=== PATIENT | female | born 1960 | race American Indian/Alaskan Native ===

== ENCOUNTER 2019-02-03 10:06 | Day surgery (SDC) | payer OTHER ==
[~2019-02-03 10:06] MED LIST: Lactated Ringers 1,000 ML IV SCH
--- NOTE | 2019-02-03 11:17 | PCM.PREANE ---
Preanesthetic Assessment - Anesthesia/Transfusion/Family Hx Anesthesia History: Prior Anesthesia Without Reaction Family History of Anesthesia Reaction: No Transfusion History: No Prior Transfusion(s) - Review of Systems General: No Symptoms Pulmonary: No Symptoms Cardiovascular: No Symptoms Gastrointestinal: No Symptoms Neurological: No Symptoms Other: Reports: None - Physical Assessment NPO Status Date: 02/02/19 Height: 5 ft 2 in Weight: 73.936 kg Mental Status: Alert & Oriented x3 Airway Class: Mallampati = 2 Dentition: Reports: Normal Dentition ROM/Head Extension: Full Lungs: Clear to Auscultation, Normal Respiratory Effort Cardiovascular: Regular Rate, Regular Rhythm - Allergies Allergies/Adverse Reactions: Allergies Allergy/AdvReac Type Severity Reaction Status Date / Time wool Allergy Rash Verified 01/29/19 08:58 - Blood Blood Available: No - Anesthesia Plan Pre-Op Medication Ordered: None - Acknowledgements Anesthesia Type Planned: General Anesthesia Pt an Appropriate Candidate for the Planned Anesthesia: Yes Alternatives and Risks of Anesthesia Discussed w Pt/Guardian: Yes Pt/Guardian Understands and Agrees with Anesthesia Plan: Yes Additional Comments: PMH: smoker, chronic pain BLE, hx of hep C, treated PLAN: tiva PreAnesthesia Questionnaire HEENT History: Reports: Other (See Below) Other HEENT History: reading glasses Cardiovascular History: Reports: None Respiratory History: Reports: COPD Gastrointestinal History: Reports: GERD, Hemorrhoids, Hepatitis Other Gastrointestinal History: hepatitis C in the past, states has been treated , was told she had cirrhosis of the liver in 2006 but has since been told her liver is fine Genitourinary History: Reports: None HOUSING RELOCATION History: Reports: Musculoskeletal History: Reports: Arthritis, Fracture Other Musculoskeletal History: hx fx wrist & ankle Neurological History: Reports: Neuropathy, Peripheral Psychiatric History: Reports: Anxiety, Depression, Other (See Below) Other Psychiatric History: depression and anxiety recently due to loss of son Endocrine/Metabolic History: Reports: None Hematologic History: Reports: None Immunologic History: Reports: None Oncologic (Cancer) History: Reports: None Dermatologic History: Reports: None - Past Surgical History Head Surgeries/Procedures: Reports: None HEENT Surgical History: Reports: None Cardiovascular Surgical History: Reports: None Respiratory Surgical History: Reports: None GI Surgical History: Reports: None Female Surgical History: Reports: Section, Tubal Ligation Endocrine Surgical History: Reports: None Neurological Surgical History: Reports: None Musculoskeletal Surgical History: Reports: None Oncologic Surgical History: Reports: None Dermatological Surgical History: Reports: None - SUBSTANCE USE Smoking Status *Q: Current Every Day Smoker Tobacco Use Within Last Twelve Months: Cigarettes Recreational Drug Use History: No - HOME MEDS Home Medications: Home Meds Carisoprodol [Soma] 350 mg PO TID PRN 01/29/19 [History] Furosemide 20 mg PO DAILY 01/29/19 [History] Gabapentin [Neurontin] 2 tab PO TID 01/29/19 [History] Hydrocortisone Acetate [Anusol-Hc] 1 supp RECTAL ASDIRECTED PRN 01/29/19 [ History] Hydrocortisone [Hydrocortisone 2.5% Crm] 1 applic TOP ASDIRECTED 01/29/19 [ History] Ranitidine HCl [Ranitidine] 1 tab PO BID 01/29/19 [History] Vitamin B Complex with C [Super B With Vitamin C] 1 tab PO DAILY 01/29/19 [ History] traMADol HCl [Tramadol HCl] 1 tab PO QID PRN 01/29/19 [History] - CURRENT (IN HOUSE) MEDS Current Meds: Current Medications Lactated Ringer's (Ringers, Lactated) 1,000 mls @ 125 mls/hr IV ASDIRECTED REGINA
[2019-02-03] MEDS ORDERED: fentaNYL 100 MCG/2 ML SDV ONE (11:45)
[2019-02-03] MEDS ORDERED: Propofol 200 MG/20 ML SDV ONE ×2 (11:45→12:16)
[2019-02-03] MEDS ORDERED: Midazolam 1 MG/ML 2 ML SDV ONE (11:45)
--- NOTE | 2019-02-03 12:37 | PCM.OPNOTE ---
- General Post-Op/Procedure Note Date of Surgery/Procedure: 02/03/19 Operative Procedure(s): Colonoscopy Pre Op Diagnosis: Rectal bleeding. Rectal mass. Family history of colon cancer Post-Op Diagnosis: Perianal mass Anesthesia Technique: MAC ( ASA III) Primary Surgeon: Bernardo Pedro Condition: Good Free Text/Narrative:: DICTATION [id number] CPT CODE [id number]
[2019-02-03] MEDS ORDERED: Lactated Ringers 1,000 ML IV SCH (12:45)
--- NOTE | 2019-02-03 13:01 | PCM.POSTAN ---
POST ANESTHESIA ASSESSMENT - MENTAL STATUS Mental Status: Alert, Oriented - RESPIRATORY Respiratory Status: Respiratory Rate WNL, Airway Patent, O2 Saturation Stable - CARDIOVASCULAR CV Status: Pulse Rate WNL, Blood Pressure Stable - GASTROINTESTINAL GI Status: No Symptoms - POST OP HYDRATION Hydration Status: Adequate & Stable
--- NOTE | 2019-02-03 13:02 | PCM48HPAN ---
Post Anesthesia Note - EVALUATION WITHIN 48HRS OF ANESTHETIC Vital Signs in Normal Range: Yes Patient Participated in Evaluation: Yes Respiratory Function Stable: Yes Airway Patent: Yes Cardiovascular Function Stable: Yes Hydration Status Stable: Yes Pain Control Satisfactory: Yes Nausea and Vomiting Control Satisfactory: Yes Mental Status Recovered: Yes Resp Rate: 12
--- NOTE | 2019-02-03 14:31 | OR ---
SURGEON: Bernardo Pedro M.D. DATE OF PROCEDURE: 02/03/2019 OPERATION PERFORMED: Colonoscopy. PRIMARY SURGEON: Bernardo Pedro M.D. ANESTHESIA: MAC. ASA CLASSIFICATION: III. PREOPERATIVE DIAGNOSIS: Rectal bleeding with rectal mass. POSTOPERATIVE DIAGNOSES: 1. No evidence of intracolonic neoplasia. 2. Rectal mass. DESCRIPTION OF PROCEDURE: The patient was taken to the endoscopy room and positioned on the endoscopy table in the left lateral decubitus position. Time-out was called for appropriate identification of the patient and procedure. Monitored anesthesia care was provided. The colonoscope was inserted into the rectum and advanced with minimal difficulty to the cecum where the colonoscope was retroflexed to visualize the ascending colon from below. The colonoscope was then straightened and slowly withdrawn. The cecum, ascending colon, hepatic flexure, transverse colon, splenic flexure, descending colon, sigmoid colon, and rectum were very well visualized. No tumors, polyps, diverticula, or angiodysplastic changes were noted. The colonoscope had been retroflexed in the cecum to visualize the ascending colon from below prior to withdrawal. Once the colonoscope was withdrawn to the rectum, it was retroflexed to visualize the anal orifice from above. No obvious intrarectal masses noted. There is, however, a perianal mass that is palpable that does not protrude into the rectum. The colonoscope was then straightened, the rectum aspirated, and the colonoscope removed. The patient will require exam under anesthesia and biopsy of this rectal mass to rule out a malignant neoplasm. The patient tolerated the procedure well and was taken to recovery room in stable condition. [place] / DIMITRIS /[id number]
== END 2019-02-03 13:20 | disposition home or self-care (01) ==
LOC: MW.SDS 10:06
PROVIDERS: ATTEND Surgery
DX: K92.1 Melena (principal); K62.89 Other specified diseases of anus and rectum; K64.9 Unspecified hemorrhoids; J44.9 Chronic obstructive pulmonary disease, unspecified; F17.210 Nicotine dependence, cigarettes, uncomplicated; Z91.048 Other nonmedicinal substance allergy status; Z79.899 Other long term (current) drug therapy; Z86.59 Personal history of other mental and behavioral disorders; Z80.0 Family history of malignant neoplasm of digestive organs
CPT/HCPCS: 00811; J2001; J2250; J2704; J3010; J7120

== ENCOUNTER 2019-03-01 07:07 | Day surgery (SDC) | payer OTHER ==
[~2019-03-01 07:07] MED LIST changes: +Lidocaine 2% 5 ML SDV ONE; +Midazolam 1 MG/ML 2 ML SDV ONE; +Ondansetron 4 MG/2 ML SDV ONE; +Propofol 200 MG/20 ML SDV ONE; +Sodium Chloride 0.9% 10 ML SDV IV PRN; +Sodium Chloride 0.9% 10 ML Syringe FLUSH PRN; +Sodium Chloride 0.9% 2.5 ML Syringe FLUSH PRN; +fentaNYL 250 MCG/5 ML SDV ONE
--- NOTE | 2019-03-01 08:06 | PCM.PREANE ---
Preanesthetic Assessment - Anesthesia/Transfusion/Family Hx Anesthesia History: Prior Anesthesia Without Reaction Family History of Anesthesia Reaction: No Transfusion History: No Prior Transfusion(s) - Review of Systems General: No Symptoms - Physical Assessment Height: 5 ft 2 in Weight: 73.936 kg ASA Class: 2 Mental Status: Alert & Oriented x3 Airway Class: Mallampati = 2 Dentition: Reports: Normal Dentition ROM/Head Extension: Full Lungs: Clear to Auscultation, Normal Respiratory Effort Cardiovascular: Regular Rate, Regular Rhythm - Allergies Allergies/Adverse Reactions: Allergies Allergy/AdvReac Type Severity Reaction Status Date / Time wool Allergy Rash Verified 02/23/19 11:12 - Blood Blood Available: No - Anesthesia Plan Pre-Op Medication Ordered: None - Acknowledgements Anesthesia Type Planned: General Anesthesia Pt an Appropriate Candidate for the Planned Anesthesia: Yes Alternatives and Risks of Anesthesia Discussed w Pt/Guardian: Yes Pt/Guardian Understands and Agrees with Anesthesia Plan: Yes Additional Comments: anes prob list: copd, RA, smoker, reomte hx of AUD, plan: ga/lma PreAnesthesia Questionnaire HEENT History: Reports: Other (See Below) Other HEENT History: hx of fx nose Cardiovascular History: Reports: None Respiratory History: Reports: COPD Gastrointestinal History: Reports: GERD, Hepatitis Other Gastrointestinal History: hx of Hepatitis C- has taken medication x2 to cure it Genitourinary History: Reports: None [employer] History: Reports: Musculoskeletal History: Reports: Arthritis, Back Pain, Chronic, Fracture Other Musculoskeletal History: hx of multiple finger fx and rib, right wrist Neurological History: Reports: Concussion Psychiatric History: Reports: PTSD Other Psychiatric History: depression and anxiety recently due to loss of son Endocrine/Metabolic History: Reports: None Hematologic History: Reports: None Immunologic History: Reports: None Oncologic (Cancer) History: Reports: None Dermatologic History: Reports: None - Past Surgical History GI Surgical History: Reports: Colonoscopy Female Surgical History: Reports: Section, Tubal Ligation - SUBSTANCE USE Smoking Status *Q: Current Every Day Smoker Tobacco Use Within Last Twelve Months: Cigarettes Recreational Drug Use History: Yes - HOME MEDS Home Medications: Home Meds Carisoprodol [Soma] 350 mg PO TID PRN 01/29/19 [History] Furosemide 20 mg PO DAILY 01/29/19 [History] Gabapentin [Neurontin] 600 mg PO TID 01/29/19 [History] Hydrocortisone Acetate [Anusol-Hc] 1 supp RECTAL ASDIRECTED PRN 01/29/19 [ History] Hydrocortisone [Hydrocortisone 2.5% Crm] 1 applic TOP ASDIRECTED 01/29/19 [ History] Ranitidine HCl [Ranitidine] 150 mg PO BID 01/29/19 [History] Vitamin B Complex with C [Super B With Vitamin C] 1 tab PO DAILY 01/29/19 [ History] traMADol HCl [Tramadol HCl] 50 mg PO QID PRN 01/29/19 [History] Albuterol [Ventolin HFA] 1 puff INH ASDIRECTED PRN 02/23/19 [History] - CURRENT (IN HOUSE) MEDS Current Meds: Current Medications Lactated Ringer's (Ringers, Lactated) 1,000 mls @ 125 mls/hr IV ASDIRECTED REGINA Sodium Chloride (Saline Flush) 10 ml FLUSH ASDIRECTED PRN PRN Reason: Keep Vein Open Sodium Chloride (Saline Flush) 2.5 ml FLUSH ASDIRECTED PRN PRN Reason: Keep Vein Open Sodium Chloride (Normal Saline) 10 ml IV ASDIRECTED PRN PRN Reason: IV Use Discontinued Medications Fentanyl (Sublimaze) Confirm Administered Dose 250 mcg .ROUTE .STK-MED ONE Stop: 03/01/19 07:03 Lidocaine (Xylocaine-Mpf 2%) Confirm Administered Dose 5 ml .ROUTE .STK-MED ONE Stop: 03/01/19 07:02 Midazolam HCl (Versed 1 Mg/Ml) Confirm Administered Dose 2 mg .ROUTE .STK-MED ONE Stop: 03/01/19 07:03 Ondansetron HCl (Zofran) Confirm Administered Dose 4 mg .ROUTE .STK-MED ONE Stop: 03/01/19 07:02 Propofol (Diprivan 20 Ml) Confirm Administered Dose 200 mg .ROUTE .STK-MED ONE Stop: 03/01/19 07:03
[2019-03-01] MEDS ORDERED: ePHEDrine 50 MG/ML SDV ONE (09:03)
[2019-03-01] MEDS ORDERED: Sodium Chloride 0.9% 20 ML ONE (09:03)
[2019-03-01] MEDS ORDERED: Glycopyrrolate 0.2 MG/ML SDV ONE (09:14)
[2019-03-01] MEDS ORDERED: Phenylephrine/Normal Saline 100 MCG/ML 10 ML Syringe ONE (09:14)
[2019-03-01] MEDS ORDERED: fentaNYL 100 MCG/2 ML SDV IVPUSH PRN (09:44)
[2019-03-01] MEDS ORDERED: Naloxone 0.4 MG/ML Syringe IVPUSH PRN (09:44)
[2019-03-01] MEDS ORDERED: 50% Dextrose in Water 50 ML Syringe IVPUSH PRN (09:44)
[2019-03-01] MEDS ORDERED: Albuterol 0.083% 2.5 MG/3 ML Neb Soln NEB PRN (09:44)
[2019-03-01] MEDS ORDERED: EPINEPHrine 1:10,000 1 MG/10 ML Syringe IVPUSH PRN (09:44)
[2019-03-01] MEDS ORDERED: Atropine 0.1 MG/ML 10 ML Syringe IVPUSH PRN ×2 (09:44)
--- NOTE | 2019-03-01 09:49 | PCM.OPNOTE ---
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
[2019-03-01] MEDS ORDERED: Lactated Ringers 1,000 ML IV SCH (10:00)
--- NOTE | 2019-03-01 11:10 | PCM48HPAN ---
Post Anesthesia Note - EVALUATION WITHIN 48HRS OF ANESTHETIC Vital Signs in Normal Range: Yes Patient Participated in Evaluation: Yes Respiratory Function Stable: Yes Airway Patent: Yes Cardiovascular Function Stable: Yes Hydration Status Stable: Yes Pain Control Satisfactory: Yes Nausea and Vomiting Control Satisfactory: Yes Mental Status Recovered: Yes Resp Rate: 15 - COMMENTS/OBSERVATIONS Free Text/Narrative:: Awake alert, questions answered. No signs or symptoms of anesthesia related problems
--- NOTE | 2019-03-01 11:42 | OR ---
SURGEON: Bernardo Pedro M.D. DATE OF PROCEDURE: 03/01/2019 OPERATION PERFORMED: Biopsy of left perianal mass. PRIMARY SURGEON: Bernardo Pedro MD. ANESTHESIA: General LMA. ASA CLASSIFICATION: II. PREOPERATIVE DIAGNOSIS: Perianal mass with bleeding and pain. POSTOPERATIVE DIAGNOSIS: Perianal mass, frozen section shows a basaloid carcinoma. ESTIMATED BLOOD LOSS: 0. INTRAOPERATIVE FLUID REPLACEMENT: 1000 mL of crystalloid. DESCRIPTION OF PROCEDURE: The patient was taken to the operating room and placed on the operating table in the supine position. Time-out was called for appropriate identification of the patient and procedure. Following satisfactory attainment of general anesthesia with placement of an LMA, the patient was placed in the [facility]. The perianal region was prepped with Betadine solution. Sterile drapes were applied. Elliptical biopsy was carried out and sent immediately for frozen section. Hemostasis was obtained with the use of electrocautery. 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 The surgical site was inspected. No further bleeding was noted. No dressing was necessary. The patient was placed back in the supine position. Following emergence from anesthesia and extubation, she was taken to recovery room in stable condition. [place] / DIMITRIS /[id number]
== END 2019-03-01 11:00 | disposition home or self-care (01) ==
LOC: MW.SDS 07:07
PROVIDERS: ATTEND Surgery
DX: C21.0 Malignant neoplasm of anus, unspecified (principal); K62.5 Hemorrhage of anus and rectum; J44.9 Chronic obstructive pulmonary disease, unspecified; K21.9 Gastro-esophageal reflux disease without esophagitis; M06.9 Rheumatoid arthritis, unspecified; F17.210 Nicotine dependence, cigarettes, uncomplicated; Z79.899 Other long term (current) drug therapy; Z91.048 Other nonmedicinal substance allergy status
CPT/HCPCS: 45100; J2001; J2250; J2370; J2405; J2704; J3010; J3490; J7120; 00300

== ENCOUNTER 2019-04-13 01:49 | Emergency (ER) | payer OTHER | END 2019-04-13 02:23 | LOC: MW.ED 01:49 | DX: Z53.21 Procedure and treatment not carried out due to patient leaving prior to being seen by health care provider (principal) ==

== ENCOUNTER 2019-04-28 13:06 | Emergency (ER) | payer OTHER ==
[2019-04-28] MEDS ORDERED: Albuterol/Ipratropium 3.0-0.5 MG/3 ML Neb Soln NEB ONE ×2 (13:11→15:34)
[2019-04-28] MEDS ORDERED: Sodium Chloride 0.9% 1,000 ML IV ONE ×2 (13:18→14:56)
--- NOTE | 2019-04-28 13:48 | EDM.PDOC ---
ED HPI GENERAL MEDICAL PROBLEM - General Chief Complaint: Respiratory Problem Stated Complaint: SOB AND VERTIGO Time Seen by Provider: 04/28/19 13:10 Source of Information: Reports: Patient, EMS History Limitations: Reports: No Limitations - History of Present Illness INITIAL COMMENTS - FREE TEXT/NARRATIVE: HISTORY AND PHYSICAL: History of present illness: Patient is a 59-year-old female who presents to the ED today via EMS for concern of feeling short of breath like she can't take a deep breath. Patient states she has a history of COPD and rectal cancer with metastasis. Patient states her "her cancer is all over her abdomen ". Patient states because of her cancer she has chronic abdominal pain but her abdominal pain is unchanged today from her baseline. Patient states the feeling that she can't take a deep breath feeling has been ongoing for the past 2-3 days and feels like there is a slight pressure in her chest. Patient states she has not used any inhalers at home for her sensation. Patient states she has not started any treatments for her cancer due to health insurance reasons. 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 Patient denies fever, chills, chest pain, or cough. Denies headache, neck stiff ness, change in vision, syncope, or near syncope. Denies nausea, vomiting, diarrhea, constipation, or dysuria. Patient has been eating and drinking appropriately. Review of systems: As per history of present illness and below otherwise all systems reviewed and negative. Past medical history: As per history of present illness and as reviewed below otherwise noncontributory. Surgical history: As per history of present illness and as reviewed below otherwise noncontributory. Social history: See social history for further information Family history: As per history of present illness and as reviewed below otherwise noncontributory. Physical exam: General: Patient is alert, oriented, and in no acute distress. Patient laying comfortably on exam table but appears chronically ill. HEENT: Atraumatic, normocephalic, pupils equal and reactive bilaterally, negative for conjunctival pallor or scleral icterus, mucous membranes dry, TMs normal bilaterally, throat clear, neck supple, nontender, trachea midline. No drooling or trismus noted. No meningeal signs. No hot potato voice noted. Lungs: Diffuse wheezing to auscultation throughout all lung stuart, breath sounds equal bilaterally, chest nontender. Heart: S1S2, regular rate and rhythm without overt murmur Abdomen: Soft, nondistended. Generalized moderate discomfort with palpation. Negative for masses or hepatosplenomegaly. Negative for costovertebral tenderness. Pelvis: Stable nontender. Genitourinary: Deferred. Rectal: Deferred. Skin: Intact, warm, dry. No lesions or rashes noted. Extremities: Atraumatic, negative for cords or calf pain. Neurovascular unremarkable. Neuro: Awake, alert, oriented. Cranial nerves II through XII unremarkable. Cerebellum unremarkable. Motor and sensory unremarkable throughout. Exam nonfocal. Notes: Dr. Clancy directly involved in patient care Patient did tell the nurse that she has been drinking a lot more alcohol than usual due to her abdominal pain. I did call and speak to Dr. Singh, oncologist at [facility] who is at our [facility] today, who did review over patient's workup. Per Dr. Singh, the question for patient's plan of care would be either hospice vs intensive radiation/chemotherapy with transfer to [facility] to further work on plan of care. Dr. Singh does state that [facility] would be able to start inpatient therapy but to have discussion with patient in regards to goals of care and care management. Discussed with patient transferred to [facility] versus [facility], as suggested by Dr. Singh. Patient requests transfer to [facility]. Dr. Pineda, hospitalist at [facility], consulted on patient and accepting of transfer, EMS arranged. Voices understanding and is agreeable to plan of care. Denies any further questions or concerns at this time. Diagnostics: CBC, CMP, UA, EKG, chest x-ray, troponin, BNP, ethanol level, lipase, abd US, lactate, blood cultures x 2 Therapeutics: DuoNeb, Saline, Morphine, Ativan, Solumedrol, Zosyn Impression: Acalculous cholecystitis Squamous cell carcinoma of anus/vulva with metastasis, stage 4 COPD exacerbation Elevated BNP Transaminitis Dehydration Elevated renal function tests Plan: 1. Transfer to [facility] to Dr. Pineda via EMS. Definitive disposition and diagnosis as appropriate pending reevaluation and review of above. Pelvic Pain Score (Numeric/FACES): 8 - Related Data Allergies Allergy/AdvReac Type Severity Reaction Status Date / Time wool Allergy Rash Verified 04/28/19 13:21 Home Meds: Home Meds Carisoprodol [Soma] 350 mg PO TID PRN 01/29/19 [History] Furosemide 20 mg PO DAILY PRN 01/29/19 [History] Gabapentin [Neurontin] 600 mg PO TID 01/29/19 [History] Ranitidine HCl [Ranitidine] 150 mg PO BID PRN 01/29/19 [History] traMADol HCl [Tramadol HCl] 50 mg PO QID PRN 01/29/19 [History] Albuterol [Ventolin HFA] 1 puff INH ASDIRECTED PRN 02/23/19 [History] oxyCODONE HCl [Oxycodone HCl] 10 mg PO Q4H PRN 04/28/19 [History] Past Medical History HEENT History: Reports: Other (See Below) Other HEENT History: hx of fx nose Cardiovascular History: Reports: None Respiratory History: Reports: COPD Gastrointestinal History: Reports: GERD, Hepatitis Other Gastrointestinal History: hx of Hepatitis C- has taken medication x2 to cure it Genitourinary History: Reports: None [employer] History: Reports: Musculoskeletal History: Reports: Arthritis, Back Pain, Chronic, Fracture Other Musculoskeletal History: hx of multiple finger fx and rib, right wrist Neurological History: Reports: Concussion Psychiatric History: Reports: PTSD, Suicidal Ideation Other Psychiatric History: depression and anxiety recently due to loss of son Endocrine/Metabolic History: Reports: None Hematologic History: Reports: None Immunologic History: Reports: None Oncologic (Cancer) History: Reports: None Dermatologic History: Reports: None - Infectious Disease History Infectious Disease History: Reports: Chicken Pox, Hepatitis C, Measles, Mumps - Past Surgical History Head Surgeries/Procedures: Reports: None HEENT Surgical History: Reports: None Cardiovascular Surgical History: Reports: None Respiratory Surgical History: Reports: None GI Surgical History: Reports: Colonoscopy Female Surgical History: Reports: Section, Tubal Ligation Endocrine Surgical History: Reports: None Neurological Surgical History: Reports: None Musculoskeletal Surgical History: Reports: None Oncologic Surgical History: Reports: None Dermatological Surgical History: Reports: None Social & Family History - Family History Family Medical History: Noncontributory - Tobacco Use Smoking Status *Q: Current Every Day Smoker Years of Tobacco use: 30 Packs/Tins Daily: 0.5 - Alcohol Use Days Per Week of Alcohol Use: 7 Number of Drinks Per Day: 2 Total Drinks Per Week: 14 - Recreational Drug Use Recreational Drug Use: No ED ROS GENERAL - Review of Systems Review Of Systems: ROS reveals no pertinent complaints other than HPI. ED EXAM, GENERAL - Physical Exam Exam: See Below (See dictation) Course - Vital Signs Last Recorded V/S: Last Vital Signs Temp 35.8 C 04/28/19 13:15 Pulse 91 04/28/19 17:20 Resp 18 04/28/19 17:20 BP 111/90 04/28/19 17:20 Pulse Ox 96 04/28/19 17:20 - Orders/Labs/Meds Orders: Active Orders 24 hr Category Date Time Status EKG Documentation Completion [RC] STAT Care 04/28/19 13:10 Active RT Aerosol Therapy [RC] ASDIRECTED Care 04/28/19 13:11 Active RT Aerosol Therapy [RC] ASDIRECTED Care 04/28/19 15:34 Active Blood Culture x2 Reflex Set [OM.PC] Stat Oth 04/28/19 16:59 Ordered Labs: Laboratory Tests 04/28/19 04/28/19 04/28/19 Range/Units 13:27 13:27 13:27 WBC 14.09 H (4.0-11.0) K/uL RBC 4.07 L (4.30-5.90) M/uL Hgb 13.0 (12.0-16.0) g/dL Hct 39.3 (36.0-46.0) % MCV 96.6 (80.0-98.0) fL MCH 31.9 (27.0-32.0) pg MCHC 33.1 (31.0-37.0) g/dL RDW Std Deviation 50.5 (28.0-62.0) fl RDW Coeff of Khurram 15 (11.0-15.0) % Plt Count 213 (150-400) K/uL MPV 9.30 (7.40-12.00) fL Neut % (Auto) 82.3 H (48.0-80.0) % Lymph % (Auto) 11.9 L (16.0-40.0) % Fannin % (Auto) 5.7 (0.0-15.0) % Eos % (Auto) 0.0 (0.0-7.0) % Baso % (Auto) 0.1 (0.0-1.5) % Neut # (Auto) 11.6 H (1.4-5.7) K/uL Lymph # (Auto) 1.7 (0.6-2.4) K/uL Fannin # (Auto) 0.8 (0.0-0.8) K/uL Eos # (Auto) 0.0 (0.0-0.7) K/uL Baso # (Auto) 0.0 (0.0-0.1) K/uL Nucleated RBC % 0.0 /100WBC Nucleated RBCs # 0 K/uL INR 1.38 Sodium 131 L (136-145) mmol/L Potassium 5.1 (3.5-5.1) mmol/L Chloride 98 (98-107) mmol/L Carbon Dioxide 21.0 (21.0-32.0) mmol/L BUN 25 H (7.0-18.0) mg/dL Creatinine 1.4 H (0.6-1.0) mg/dL Est Cr Clr Drug Dosing 33.46 mL/min Estimated GFR (MDRD) 38.8 ml/min Glucose 127 H (74-106) mg/dL Calcium 8.4 L (8.5-10.1) mg/dL Magnesium (1.8-2.4) mg/dL Total Bilirubin 1.6 H (0.2-1.0) mg/dL AST 1467 H (15-37) IU/L ALT 583 H (14-63) IU/L Alkaline Phosphatase 68 (46-116) U/L Troponin I < 0.050 (0.000-0.056) ng/mL B-Natriuretic Peptide (<100) PG/ML Total Protein 6.6 (6.4-8.2) g/dL Albumin 2.7 L (3.4-5.0) g/dL Globulin 3.9 (2.6-4.0) g/dL Albumin/Globulin Ratio 0.7 L (0.9-1.6) Lipase 82 (73-393) U/L Ethyl Alcohol mg/dL 04/28/19 04/28/19 04/28/19 Range/Units 13:27 13:27 14:02 WBC (4.0-11.0) K/uL RBC (4.30-5.90) M/uL Hgb (12.0-16.0) g/dL Hct (36.0-46.0) % MCV (80.0-98.0) fL MCH (27.0-32.0) pg MCHC (31.0-37.0) g/dL RDW Std Deviation (28.0-62.0) fl RDW Coeff of Khurram (11.0-15.0) % Plt Count (150-400) K/uL MPV (7.40-12.00) fL Neut % (Auto) (48.0-80.0) % Lymph % (Auto) (16.0-40.0) % Fannin % (Auto) (0.0-15.0) % Eos % (Auto) (0.0-7.0) % Baso % (Auto) (0.0-1.5) % Neut # (Auto) (1.4-5.7) K/uL Lymph # (Auto) (0.6-2.4) K/uL Fannin # (Auto) (0.0-0.8) K/uL Eos # (Auto) (0.0-0.7) K/uL Baso # (Auto) (0.0-0.1) K/uL Nucleated RBC % /100WBC Nucleated RBCs # K/uL INR Sodium (136-145) mmol/L Potassium (3.5-5.1) mmol/L Chloride (98-107) mmol/L Carbon Dioxide (21.0-32.0) mmol/L BUN (7.0-18.0) mg/dL Creatinine (0.6-1.0) mg/dL Est Cr Clr Drug Dosing mL/min Estimated GFR (MDRD) ml/min Glucose (74-106) mg/dL Calcium (8.5-10.1) mg/dL Magnesium 1.9 (1.8-2.4) mg/dL Total Bilirubin (0.2-1.0) mg/dL AST (15-37) IU/L ALT (14-63) IU/L Alkaline Phosphatase (46-116) U/L Troponin I (0.000-0.056) ng/mL B-Natriuretic Peptide 343 H (<100) PG/ML Total Protein (6.4-8.2) g/dL Albumin (3.4-5.0) g/dL Globulin (2.6-4.0) g/dL Albumin/Globulin Ratio (0.9-1.6) Lipase (73-393) U/L Ethyl Alcohol 9 mg/dL Meds: Medications Discontinued Medications Generic Name Dose Route Start Last Admin Trade Name Ivanq PRN Reason Stop Dose Admin Albuterol/Ipratropium 3 ml 04/28/19 13:11 04/28/19 13:37 Duoneb 3.0-0.5 Mg/3 Ml NEB 04/28/19 13:12 3 ml ONETIME ONE Administration Albuterol/Ipratropium 3 ml 04/28/19 15:34 04/28/19 15:48 Duoneb 3.0-0.5 Mg/3 Ml NEB 04/28/19 15:35 3 ml ONETIME ONE Administration Sodium Chloride 1,000 mls @ 999 mls/hr 04/28/19 13:18 04/28/19 13:38 Normal Saline IV 04/28/19 14:18 999 mls/hr STAT ONE Administration Sodium Chloride 1,000 mls @ 999 mls/hr 04/28/19 14:56 04/28/19 14:59 Normal Saline IV 04/28/19 15:56 999 mls/hr STAT ONE Administration Piperacillin Sod/Tazobactam 50 mls @ 100 mls/hr 04/28/19 17:42 04/28/19 18:01 Sod 3.375 gm/ Sodium Chloride IV 04/28/19 18:11 100 mls/hr ONETIME ONE Administration Lorazepam 1 mg 04/28/19 15:34 04/28/19 16:00 Ativan IVPUSH 04/28/19 15:35 1 mg ONETIME ONE Administration Methylprednisolone Sodium Succinate 125 mg 04/28/19 15:49 04/28/19 16:02 Solu-Medrol IVPUSH 04/28/19 15:50 125 mg ONETIME ONE Administration Morphine Sulfate 2 mg 04/28/19 13:56 04/28/19 14:04 Morphine IVPUSH 04/28/19 13:57 2 mg ONETIME ONE Administration Morphine Sulfate 2 mg 04/28/19 15:57 04/28/19 16:27 Morphine IVPUSH 04/28/19 15:58 Not Given ONETIME ONE Departure - Departure Time of Disposition: 17:20 Disposition: DC/Tfer to Acute Hospital 02 Clinical Impression: Acalculous cholecystitis, Squamous cell carcinoma of anus, Elevated brain natriuretic peptide (BNP) level, Transaminitis, Dehydration, Renal function test abnormal Metastasis Qualifiers: Area of secondary neoplastic involvement: unspecified site Qualified Code(s): C79.9 - Secondary malignant neoplasm of unspecified site - Discharge Information Referrals: PCP,None [Primary Care Provider] - - My Orders Last 24 Hours: My Active Orders 04/28/19 13:10 EKG Documentation Completion [RC] STAT 04/28/19 13:11 RT Aerosol Therapy [RC] ASDIRECTED 04/28/19 15:34 RT Aerosol Therapy [RC] ASDIRECTED 04/28/19 16:59 Blood Culture x2 Reflex Set [OM.PC] Stat - Assessment/Plan Last 24 Hours: My Active Orders 04/28/19 13:10 EKG Documentation Completion [RC] STAT 04/28/19 13:11 RT Aerosol Therapy [RC] ASDIRECTED 04/28/19 15:34 RT Aerosol Therapy [RC] ASDIRECTED 04/28/19 16:59 Blood Culture x2 Reflex Set [OM.PC] Stat
[2019-04-28] MEDS ORDERED: Morphine 2 MG/ML Syringe IVPUSH ONE ×2 (13:56→15:57)
[2019-04-28 14:33] LABS: BLOOD UREA NITROGEN,BUN 25 mg/dL (7.0-18.0); CHLORIDE,CL 98 mmol/L (98-107); GLUCOSE RANDOM 127 mg/dL (74-106); LIPASE 82 U/L (73-393); POTASSIUM,K 5.1 mmol/L (3.5-5.1); SODIUM,NA 131 mmol/L (136-145)
--- NOTE | 2019-04-28 14:52 | CR ---
Chest: Portable view of the chest was obtained. Comparison: Previous chest x-ray 12/24/09. Heart size is slightly prominent. Some of this relates to accentuation from portable technique. Upper mediastinum is normal. Right-sided infusion port is seen. Lungs are clear with no acute parenchymal change. Bony structures are grossly intact. Impression: 1. Heart size slightly prominent. Right-sided infusion catheter. 2. Nothing acute is appreciated on portable chest x-ray. Diagnostic code #2 MTDD
[2019-04-28] MEDS ORDERED: LORazepam 2 MG/ML SDV IVPUSH ONE (15:34)
[2019-04-28] MEDS ORDERED: methylPREDNISolone Sodium Succinate 125 MG/2 ML SDV IVPUSH ONE (15:49)
--- NOTE | 2019-04-28 16:34 | US ---
Limited abdominal ultrasound: Multiple real-time images of the upper right abdomen were obtained. Comparison: No prior abdominal imaging. Gallbladder wall is thickened with mild gallbladder wall edema. No shadowing gallstones are seen. No biliary duct dilatation is seen. Liver shows no focal parenchymal abnormality. Liver is normal in echotexture as compared to the right kidney. Pancreas appears within normal limits as seen. Impression: 1. Gallbladder wall thickening with slight gallbladder edema. No gallstones are seen. No biliary duct dilatation is seen. Uncertain as to significance of this finding. Please correlate if patient has any symptoms to suggest acalculus cholecystitis. If any clinical questions remain, biliary HIDA scan with ejection fraction could be considered to further evaluate. 2. Liver appears within normal limits by ultrasound exam. 3. Right upper quadrant abdominal ultrasound is otherwise unremarkable. Diagnostic code #3 MTDD
[2019-04-28] MEDS ORDERED: Piperacillin/Tazobactam 3.375 GM in Sodium Chloride 0.9% 50 ML IV ONE (17:42)
== END 2019-04-28 18:49 ==
LOC: MW.ED 13:06
DX: J44.1 Chronic obstructive pulmonary disease with (acute) exacerbation (principal); K81.9 Cholecystitis, unspecified; E86.0 Dehydration; R94.4 Abnormal results of kidney function studies; R74.0 Nonspecific elevation of levels of transaminase and lactic acid dehydrogenase [LDH]; C78.5 Secondary malignant neoplasm of large intestine and rectum; C80.1 Malignant (primary) neoplasm, unspecified; F17.210 Nicotine dependence, cigarettes, uncomplicated; Z91.048 Other nonmedicinal substance allergy status; Z79.51 Long term (current) use of inhaled steroids; Z98.51 Tubal ligation status; R79.89 Other specified abnormal findings of blood chemistry; Z79.899 Other long term (current) drug therapy
CPT/HCPCS: 36415; 71045; 76705; 80053; 80320; 83690; 83735; 83880; 84484; 85025; 85610; 93005; 96361; 96365; 96375; 99285; J2060; J2270; J2543; J2930; J7040; J7050; G0480; J7620-GY

== ENCOUNTER 2021-04-17 14:56 | Emergency (ER) | payer MEDICARE, OTHER, MEDICAID ==
--- NOTE | 2021-04-17 15:10 | EDM.PDOC ---
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 Patient's last known normal was around a week ago. Her friend saw her today and noticed that she had a right facial droop, weakness of her right leg and arm prompting her to bring her to the hospital. Patient notes that she thinks the symptoms started about a week ago and that they do seem to be getting a little bit better. She has been able to ambulate but notes subjective weakness of the right lower extremity. She notes much worse weakness of her right upper extremity. She also notes a mild right facial droop and some difficulty with word finding, some confusion. Bilateral Head Pain Score (Numeric/FACES): 0 - Related Data Allergies Allergy/AdvReac Type Severity Reaction Status Date / Time wool Allergy Rash Verified 04/28/19 13:21 Home Meds: Home Meds Furosemide 20 mg PO DAILY PRN 01/29/19 [History] Gabapentin [Neurontin] 600 mg PO TID 01/29/19 [History] Ranitidine HCl [Ranitidine] 150 mg PO BID PRN 01/29/19 [History] carisoprodoL [Soma] 350 mg PO TID PRN 01/29/19 [History] traMADol HCl [Tramadol HCl] 50 mg PO QID PRN 01/29/19 [History] Albuterol [Ventolin HFA] 1 puff INH ASDIRECTED PRN 02/23/19 [History] oxyCODONE HCl [Oxycodone HCl] 10 mg PO Q4H PRN 04/28/19 [History] Past Medical History HEENT History: Reports: Other (See Below) Other HEENT History: hx of fx nose Cardiovascular History: Reports: None Respiratory History: Reports: COPD Gastrointestinal History: Reports: GERD, Hepatitis Other Gastrointestinal History: hx of Hepatitis C- has taken medication x2 to cure it Genitourinary History: Reports: None SECURITY ORDERLY History: Reports: Musculoskeletal History: Reports: Arthritis, Back Pain, Chronic, Fracture Other Musculoskeletal History: hx of multiple finger fx and rib, right wrist Neurological History: Reports: Concussion Psychiatric History: Reports: PTSD, Suicidal Ideation Other Psychiatric History: depression and anxiety recently due to loss of son Endocrine/Metabolic History: Reports: None Hematologic History: Reports: None Immunologic History: Reports: None Oncologic (Cancer) History: Reports: None Dermatologic History: Reports: None - Infectious Disease History Infectious Disease History: Reports: Chicken Pox, Hepatitis C, Measles, Mumps - Past Surgical History Head Surgeries/Procedures: Reports: None HEENT Surgical History: Reports: None Cardiovascular Surgical History: Reports: None Respiratory Surgical History: Reports: None GI Surgical History: Reports: Colonoscopy Female Surgical History: Reports: Section, Tubal Ligation Endocrine Surgical History: Reports: None Neurological Surgical History: Reports: None Musculoskeletal Surgical History: Reports: None Oncologic Surgical History: Reports: None Dermatological Surgical History: Reports: None Social & Family History - Family History Family Medical History: No Pertinent Family History ED ROS GENERAL - Review of Systems Review Of Systems: Comprehensive ROS is negative, except as noted in HPI. ED EXAM, GENERAL - Physical Exam Exam: See Below Exam Limited By: No Limitations General Appearance: Alert, WD/WN, No Apparent Distress Eye Exam: Bilateral Eye: EOMI, PERRL Ears: Hearing Grossly Normal Throat/Mouth: Normal Voice, No Airway Compromise Head: Atraumatic, Normocephalic Neck: Normal Inspection Respiratory/Chest: No Respiratory Distress, Lungs Clear, Normal Breath Sounds, No Accessory Muscle Use Cardiovascular: Normal Peripheral Pulses, Regular Rate, Rhythm GI/Abdominal: Soft, Non-Tender Extremities: Normal Inspection Neurological: Alert, Oriented, Other (mild R facial droop; normal mm strength LUE and LLE; subjective weakness without drift of RLE; some effort against gr avity of RUE with almost no in home aide strength) Psychiatric: Normal Affect, Normal Mood Skin Exam: Warm, Dry, Intact, Normal Color #1 Interpretation EKG Date: 04/17/21 Time: 16:32 Rhythm: NSR Rate (Beats/Min): 91 [place]: Normal P-Wave: Present QRS: Normal ST-T: Normal QT: Normal RI/PQ Interval: 138 Comparison: NA - No Prior EKG EKG Interpretation Comments: normal EKG Course - Re-Assessments/Exams Free Text/Narrative Re-Assessment/Exam: 04/17/21 15:08 NIHSS = 4 04/17/21 15:12 Patient symptoms are concerning for subacute CVA. Will get CT imaging of the head. Will get CTA imaging of the head and neck. Will get basic labs. Patient is well outside the window for thrombolytics or neurosurgical intervention. 04/17/21 16:[address] likely brain mets with cerebral edema; decadron ordered. I have reached out to transfer center for transfer help. 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 - Discharge Information Referrals: PCP,None [Primary Care Provider] - Forms: ED Department Discharge <Tye Buckner - Last Filed: 04/18/21 05:03> Course - Vital Signs Last Recorded V/S: Last Vital Signs Temp 98.1 F 04/17/21 18:50 Pulse 61 04/18/21 00:59 Resp 16 04/18/21 00:59 BP 145/75 H 04/18/21 00:59 Pulse Ox 95 04/18/21 00:59 - Orders/Labs/Meds Orders: Active Orders 24 hr Category Date Time Status dexAMETHasone [Decadron] Med 04/18/21 05:10 Once 6 mg IVPUSH ONETIME ONE Saline Lock Insert [OM.PC] Stat Oth 04/17/21 15:06 Ordered Medication Orders Dexamethasone (Dexamethasone 4 Mg/Ml Sdv) 6 mg IVPUSH ONETIME ONE Stop: 04/18/21 05:11 Labs: Laboratory Tests 04/17/21 04/17/21 04/17/21 Range/Units 16:14 16:16 16:16 WBC 6.41 (4.0-11.0) K/uL RBC 4.43 (4.30-5.90) M/uL Hgb 14.4 (12.0-16.0) g/dL Hct 41.8 (36.0-46.0) % MCV 94.4 (80.0-98.0) fL MCH 32.5 H (27.0-32.0) pg MCHC 34.4 (31.0-37.0) g/dL RDW Std Deviation 48.1 (28.0-62.0) fl RDW Coeff of Khurram 14 (11.0-15.0) % Plt Count 259 (150-400) K/uL MPV 10.00 (7.40-12.00) fL Neut % (Auto) 80.6 H (48.0-80.0) % Lymph % (Auto) 11.1 L (16.0-40.0) % [place] % (Auto) 7.3 (0.0-15.0) % Eos % (Auto) 0.8 (0.0-7.0) % Baso % (Auto) 0.2 (0.0-1.5) % Neut # (Auto) 5.2 (1.4-5.7) K/uL Lymph # (Auto) 0.7 (0.6-2.4) K/uL [place] # (Auto) 0.5 (0.0-0.8) K/uL Eos # (Auto) 0.1 (0.0-0.7) K/uL Baso # (Auto) 0.0 (0.0-0.1) K/uL Nucleated RBC % 0.0 /100WBC Nucleated RBCs # 0 K/uL INR APTT (18.6-31.3) SEC Sodium (136-145) mmol/L Potassium (3.5-5.1) mmol/L Chloride (98-107) mmol/L Carbon Dioxide (21.0-32.0) mmol/L BUN (7.0-18.0) mg/dL Creatinine (0.6-1.0) mg/dL Est Cr Clr Drug Dosing mL/min Estimated GFR (MDRD) ml/min Glucose (74-106) mg/dL Lactic Acid 1.7 (0.4-2.0) mmol/L Calcium (8.5-10.1) mg/dL Magnesium (1.8-2.4) mg/dL Total Bilirubin (0.2-1.0) mg/dL AST (15-37) IU/L ALT (14-63) IU/L Alkaline Phosphatase (46-116) U/L Troponin I (0.000-0.056) ng/mL Total Protein (6.4-8.2) g/dL Albumin (3.4-5.0) g/dL Globulin (2.6-4.0) g/dL Albumin/Globulin Ratio (0.9-1.6) Urine Color Urine Appearance Urine pH (5.0-8.0) Ur Specific [place] (1.001-1.035) Urine Protein (NEGATIVE) mg/dL Urine Glucose (UA) (NEGATIVE) mg/dL Urine Ketones (NEGATIVE) mg/dL Urine Occult Blood (NEGATIVE) Urine Nitrite (NEGATIVE) Urine Bilirubin (NEGATIVE) Urine Urobilinogen (<2.0) EU/dL Ur Leukocyte Esterase (NEGATIVE) Urine RBC (0-2/HPF) Urine WBC (0-5/HPF) Ur Epithelial Cells (NONE-FEW) Urine Bacteria (NEGATIVE) Urine Mucus (NONE-MOD) SARS-CoV-2 RNA (RA) NEGATIVE (NEGATIVE) 04/17/21 04/17/21 04/17/21 Range/Units 16:16 16:16 18:31 WBC (4.0-11.0) K/uL RBC (4.30-5.90) M/uL Hgb (12.0-16.0) g/dL Hct (36.0-46.0) % MCV (80.0-98.0) fL MCH (27.0-32.0) pg MCHC (31.0-37.0) g/dL RDW Std Deviation (28.0-62.0) fl RDW Coeff of Khurram (11.0-15.0) % Plt Count (150-400) K/uL MPV (7.40-12.00) fL Neut % (Auto) (48.0-80.0) % Lymph % (Auto) (16.0-40.0) % [place] % (Auto) (0.0-15.0) % Eos % (Auto) (0.0-7.0) % Baso % (Auto) (0.0-1.5) % Neut # (Auto) (1.4-5.7) K/uL Lymph # (Auto) (0.6-2.4) K/uL [place] # (Auto) (0.0-0.8) K/uL Eos # (Auto) (0.0-0.7) K/uL Baso # (Auto) (0.0-0.1) K/uL Nucleated RBC % /100WBC Nucleated RBCs # K/uL INR 1.03 APTT 26.0 (18.6-31.3) SEC Sodium 139 (136-145) mmol/L Potassium 3.6 (3.5-5.1) mmol/L Chloride 105 (98-107) mmol/L Carbon Dioxide 26.1 (21.0-32.0) mmol/L BUN 12 (7.0-18.0) mg/dL Creatinine 0.8 (0.6-1.0) mg/dL Est Cr Clr Drug Dosing 59.89 mL/min Estimated GFR (MDRD) > 60.0 ml/min Glucose 119 H (74-106) mg/dL Lactic Acid (0.4-2.0) mmol/L Calcium 8.7 (8.5-10.1) mg/dL Magnesium 1.5 L (1.8-2.4) mg/dL Total Bilirubin 0.4 (0.2-1.0) mg/dL AST 20 (15-37) IU/L ALT 20 (14-63) IU/L Alkaline Phosphatase 53 (46-116) U/L Troponin I < 0.050 (0.000-0.056) ng/mL Total Protein 7.2 (6.4-8.2) g/dL Albumin 3.3 L (3.4-5.0) g/dL Globulin 3.9 (2.6-4.0) g/dL Albumin/Globulin Ratio 0.9 (0.9-1.6) Urine Color YELLOW Urine Appearance CLEAR Urine pH 6.0 (5.0-8.0) Ur Specific [place] 1.020 (1.001-1.035) Urine Protein NEGATIVE (NEGATIVE) mg/dL Urine Glucose (UA) NEGATIVE (NEGATIVE) mg/dL Urine Ketones NEGATIVE (NEGATIVE) mg/dL Urine Occult Blood MODERATE H (NEGATIVE) Urine Nitrite NEGATIVE (NEGATIVE) Urine Bilirubin NEGATIVE (NEGATIVE) Urine Urobilinogen 0.2 (<2.0) EU/dL Ur Leukocyte Esterase TRACE H (NEGATIVE) Urine RBC 5-10 (0-2/HPF) Urine WBC 1-3 (0-5/HPF) Ur Epithelial Cells RARE (NONE-FEW) Urine Bacteria FEW (NEGATIVE) Urine Mucus LIGHT (NONE-MOD) SARS-CoV-2 RNA (RA) (NEGATIVE) Meds: Medications Generic Name Dose Route Start Last Admin Trade Name Freq PRN Reason Stop Dose Admin Dexamethasone 6 mg 04/18/21 05:10 Dexamethasone 4 Mg/Ml Sdv IVPUSH 04/18/21 05:11 ONETIME ONE Discontinued Medications Generic Name Dose Route Start Last Admin Trade Name Freq PRN Reason Stop Dose Admin Dexamethasone 6 mg 04/17/21 16:42 04/17/21 17:10 Dexamethasone 4 Mg/Ml Sdv IVPUSH 04/17/21 16:43 6 mg ONETIME ONE Administration Dexamethasone 6 mg 04/17/21 23:10 04/17/21 22:29 Dexamethasone 4 Mg/Ml Sdv IVPUSH 04/17/21 23:11 6 mg ONETIME ONE Administration Levetiracetam 500 mg/ Dextrose 105 mls @ 420 mls/hr 04/17/21 19:05 04/17/21 19:47 /Water IV 04/17/21 19:19 420 mls/hr STAT STA Administration - Re-Assessments/Exams Free Text/Narrative Re-Assessment/Exam: 04/17/21 19:46 I called and spoke to [facility] and they are on diversion for Dr. Lopez her oncologist is. We will continue to call places to transfer patient. 04/17/21 20:35 I called the [facility] and they also do not have the capacity to take or see this patient. 04/17/21 21:[address] Cintron neurosurgery at [facility] she states that she canceled the patient however did not have any beds available and recommend home back in the morning. Patient was seen in the ER she will continue to get Decadron every 6. 04/18/21 05:02 Patient would like to go home and she is okay to drive herself as she has been seen walking around using her upper extremity. Patient will be given her every 6 dose of Decadron and will drive to my not in a row 8 AM from home. Departure - Departure Time of Disposition: 05:03 Condition: Good Sepsis Event Note (ED) - Focused Exam Vital Signs: Vital Signs Temp Pulse Resp BP Pulse Ox 04/18/21 00:59 61 16 145/75 H 95 04/17/21 21:40 75 18 157/81 H 97 04/17/21 20:35 79 17 154/82 H 98 04/17/21 19:45 72 18 137/68 98 04/17/21 18:50 98.1 F 77 18 138/73 97 04/17/21 17:45 98.2 F 82 18 152/73 H 97 - My Orders Last 24 Hours: My Active Orders 04/18/21 05:10 dexAMETHasone [Decadron] 6 mg IVPUSH ONETIME ONE - Assessment/Plan Last 24 Hours: My Active Orders 04/18/21 05:10 dexAMETHasone [Decadron] 6 mg IVPUSH ONETIME ONE
--- NOTE | 2021-04-17 16:23 | CT ---
INDICATION: Weakness. COMPARISON: PET scan 03/06/2021. TECHNIQUE: Noncontrast CT of the head. FINDINGS: Rounded low attenuation lesions at the andrade-white junction of the bilateral frontal lobes measures approximately 8 mm in maximal dimension on the right and 12 mm in maximal dimension the left lobe (axial images 39 and 38 respectively). Low-attenuation lesion of the posterior left parietal lobe measures 13 mm in diameter (image 36). Low-attenuation lesion of the right parietal temporal lobe junction measures 13 mm in diameter (axial image 30). Findings are concerning for metastases given the patient`s clinical history. Other differential considerations include multiple cerebral abscesses. Associated marked surrounding vasogenic edema within the white matter of both cerebral hemispheres, left greater right. Mass effect and partial effacement of the posterior horn of left lateral ventricle. No intracranial hemorrhage. No acute infarct. No midline shift. Basilar cisterns are patent. Normal calvarium and skull base. Visualized paranasal sinuses and mastoid air cells are clear. Normal orbits bilaterally. IMPRESSION: 1. Multiple rounded low attenuation lesions at the andrade-white junction of the bilateral frontal lobes, posterior left parietal lobe, and right parietotemporal lobe junction concerning for metastases. Differential considerations include cerebral abscesses. Associated surrounding edema within the white matter of both cerebral hemispheres, left greater than right. Recommend follow-up with MRI without and with IV gadolinium for further evaluation 2. Mass effect and partial effacement of the posterior horn of the lateral ventricle. 3. No midline shift. 4. No intracranial hemorrhage. No acute infarcts. Please note that all CT scans at this facility use dose modulation, iterative reconstruction, and/or weight-based dosing when appropriate to reduce radiation dose to as low as reasonably achievable. Dictated by Leonardo Cintron MD @ 04/17/2021 4:22:00 PM (Electronically Signed)
[2021-04-17] MEDS ORDERED: Dexamethasone 4 MG/ML SDV IVPUSH ONE ×2 (16:42→23:10)
--- NOTE | 2021-04-17 16:42 | PCM.SN.2 ---
- Free Text/Narrative Note: Called to ED for intravenous catheter placement. Ultrasound utilized to identify vein in left AC. Area prepped with chlorhexidine and ultrasound guidance of catheter used to obtain access. good blood return and easy flushing noted. Dressing applied and and patient denies pain following procedure.
[2021-04-17 17:03] LABS: BLOOD UREA NITROGEN,BUN 12 mg/dL (7.0-18.0); CARBON DIOXIDE,CO2 26.1 mmol/L (21.0-32.0); CHLORIDE,CL 105 mmol/L (98-107); GLUCOSE RANDOM 119 mg/dL (74-106); POTASSIUM,K 3.6 mmol/L (3.5-5.1); SODIUM,NA 139 mmol/L (136-145)
--- NOTE | 2021-04-17 17:07 | CR ---
INDICATION: CVA. TECHNIQUE: Chest 1 views. COMPARISON: 10/12/2019. FINDINGS: Cardiovascular and mediastinum: Heart size and vasculature are normal in caliber and appearance. Port catheter present. Lungs and pleural spaces: Improved pulmonary nodules. No acute infiltrate or effusion. No pneumothorax. Bones and soft tissues: No significant findings. IMPRESSION: No sign of acute cardiopulmonary disease. Improved pulmonary nodules. Dictated by Dawson Sousa MD @ 04/17/2021 5:05:18 PM (Electronically Signed)
[2021-04-18] MEDS ORDERED: Dexamethasone 4 MG/ML SDV IVPUSH ONE (05:10)
== END 2021-04-18 05:15 ==
LOC: MW.ED 14:56
DX: C71.9 Malignant neoplasm of brain, unspecified (principal); J44.9 Chronic obstructive pulmonary disease, unspecified; K21.9 Gastro-esophageal reflux disease without esophagitis; Z91.048 Other nonmedicinal substance allergy status; Z79.899 Other long term (current) drug therapy; Z20.822 Contact with and (suspected) exposure to COVID-19
CPT/HCPCS: 36415; 70450; 71045; 80053; 81001; 83605; 83735; 84484; 85025; 85610; 85730; 93005; 96374; 96375; 96376; 99285; J1100; J1953; U0002; 36410

== ENCOUNTER 2021-06-02 04:41 | Inpatient (IN) | payer MEDICARE, MEDICAID ==
[2021-06-02] MEDS ORDERED: Sodium Chloride 0.9% 10 ML Syringe FLUSH PRN (04:46)
[2021-06-02] MEDS ORDERED: Sodium Chloride 0.9% 2.5 ML Syringe FLUSH PRN (04:46)
[2021-06-02] MEDS ORDERED: Ondansetron 4 MG/2 ML SDV IVPUSH ONE (04:47)
[2021-06-02] MEDS ORDERED: Morphine 4 MG/ML Syringe IVPUSH ONE (04:47)
--- NOTE | 2021-06-02 04:51 | EDM.PDOC ---
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 Patient d escribes a constant dull mid chest pain that has been going on for the last few weeks. She states that she has thrush esophagitis she is unsure if she is currently taking the nystatin but I think she is supposed to be. No cough or fever some mild shortness of breath and patient wears 2 L nasal cannula at baseline. No nausea or vomiting no abdominal pain. Patient takes 10 mg oxycodone for cancer related pain every 4 hours as needed. Middle Chest Pain Score (Numeric/FACES): 8 - Related Data Allergies Allergy/AdvReac Type Severity Reaction Status Date / Time wool Allergy Rash Verified 06/02/21 04:43 Home Meds: Home Meds Furosemide 20 mg PO DAILY PRN 01/29/19 [History] Gabapentin [Neurontin] 600 mg PO TID 01/29/19 [History] Ranitidine HCl [Ranitidine] 150 mg PO BID PRN 01/29/19 [History] carisoprodoL [Soma] 350 mg PO TID PRN 01/29/19 [History] traMADol HCl [Tramadol HCl] 50 mg PO QID PRN 01/29/19 [History] Albuterol [Ventolin HFA] 1 puff INH ASDIRECTED PRN 02/23/19 [History] oxyCODONE HCl [Oxycodone HCl] 10 mg PO Q4H PRN 04/28/19 [History] Past Medical History HEENT History: Reports: Other (See Below) Other HEENT History: hx of fx nose Cardiovascular History: Reports: None Respiratory History: Reports: COPD Gastrointestinal History: Reports: GERD, Hepatitis Other Gastrointestinal History: hx of Hepatitis C- has taken medication x2 to cure it Genitourinary History: Reports: None [employer] History: Reports: Musculoskeletal History: Reports: Arthritis, Back Pain, Chronic, Fracture Other Musculoskeletal History: hx of multiple finger fx and rib, right wrist Neurological History: Reports: Concussion Psychiatric History: Reports: PTSD, Suicidal Ideation Other Psychiatric History: depression and anxiety recently due to loss of son Endocrine/Metabolic History: Reports: None Hematologic History: Reports: None Immunologic History: Reports: None Oncologic (Cancer) History: Reports: None Dermatologic History: Reports: None - Infectious Disease History Infectious Disease History: Reports: Chicken Pox, Hepatitis C, Measles, Mumps - Past Surgical History Head Surgeries/Procedures: Reports: None HEENT Surgical History: Reports: None Cardiovascular Surgical History: Reports: None Respiratory Surgical History: Reports: None GI Surgical History: Reports: Colonoscopy Female Surgical History: Reports: Section, Tubal Ligation Endocrine Surgical History: Reports: None Neurological Surgical History: Reports: None Musculoskeletal Surgical History: Reports: None Oncologic Surgical History: Reports: None Dermatological Surgical History: Reports: None Social & Family History - Family History Family Medical History: No Pertinent Family History - Caffeine Use Caffeine Use: Reports: None ED ROS GENERAL - Review of Systems Review Of Systems: See Below Free Text/Narrative/Comment: General: No fever. Skin: No rash. ENT: No sore throat. Neck: No neck stiffness. Respiratory: Per HPI Cardiac: Per HPI Gastrointestinal: No nausea, vomiting or abdominal pain. Urinary: No dysuria. Musculoskeletal: No myalgias/arthralgias. Neurologic: No headache. ED EXAM, GENERAL - Physical Exam Exam: See Below Free Text/Narrative:: General Appearance: No acute distress, appears comfortable Skin: No rash HEENT: Normocephalic/atraumatic, sclera anicteric, mucous membranes dry Neck: Normal range of motion Chest and Lungs: Bilateral breath sounds, clear to auscultation, port palpable in the right midclavicular line Cardiovascular: Tachycardic rate regular rhythm intact distal perfusion Abdomen: Soft, non-tender Back: Normal Musculoskeletal: No edema or tenderness Neurologic: Awake, alert, no obvious deficits, moving all extremities Psychiatric: Appropriate, cooperative #1 Interpretation EKG Date: 06/02/21 Time: 04:53 EKG Interpretation Comments: Sinus tachycardia rate of 133 multiple PVCs some signs of RVH no acute ischemia Departure - Departure Disposition: Admitted As Inpatient 68 Clinical Impression: Bilateral pulmonary embolism, Disorder of right ventricle of heart, Hyponatremia, Hypomagnesemia, Dyspnea, Chest pain Metastatic cancer Qualifiers: Area of secondary neoplastic involvement: unspecified site Qualified Code(s): C79.9 - Secondary malignant neoplasm of unspecified site - Discharge Information Referrals: PCP,None [Primary Care Provider] - Forms: ED Department Discharge - Assessment/Plan Assessment:: 61-year-old female presenting with chest pain tachycardia in the setting of active cancer. ACS is a consideration and EKG is pending patient was given 324 of aspirin by EMS in the field. PE certainly needs to be considered as well. Pneumonia is possible thrush related pain and dehydration leading to the tachycardia is also potentially possible but would be a diagnosis of exclusion. Morphine and Zofran given for initial symptom treatment IV fluids will be given and will continue to monitor and reassess. CBC CMP lipase troponin chest x-ray all ordered for initial work-up. 0550: Labs notable for significant pancytopenia. Pt likely neutropenic. However, diff pending. Pt also with significant hyponatremia, LA is normal, renal function is good. 1L NS added, trop negative, CTPA added, CXR unremarkable. Results of CTPA pending at this time. I think patient will likely require admission for her hyponatremia. Pt clinically dehydrated and I suspect this is a hypovolemic hyponatremia. HR improving somewhat with IVF. Pt signedout to Dr. Tamez pending remainder of results and final disposition. <Giancarlo Tamez - Last Filed: 06/02/21 08:42> Course - Vital Signs Last Recorded V/S: Last Vital Signs Temp 36.4 C 06/02/21 04:43 Pulse 125 H 06/02/21 08:32 Resp 28 H 06/02/21 08:32 BP 101/57 L 06/02/21 08:32 Pulse Ox 95 06/02/21 08:32 - Orders/Labs/Meds Orders: Active Orders 24 hr Category Date Time Status Admission Status [Patient Status] [ADT] Stat ADT 06/02/21 08:36 Active Chest PE [Ang Chest] [CT] Stat Exams 06/02/21 05:48 Taken CULTURE BLOOD [BC] Stat Lab 06/02/21 05:10 Received CULTURE BLOOD [BC] Stat Lab 06/02/21 07:15 Received Enoxaparin [Lovenox] Med 06/02/21 08:39 Stat 75 mg SUBCUT STAT STA Lactated Ringers [Ringers, Lactated] 1,000 ml Med 06/02/21 05:00 Active IV ASDIRECTED Magnesium Sulfate/Water [Magnesium Sulfate in Water 2 Med 06/02/21 08:40 Ordered GM/50 ML] 2 gm Premix Bag 1 bag IV ONETIME Sodium Chloride 0.9% [Normal Saline] 1,000 ml Med 06/02/21 06:00 Active IV ASDIRECTED Sodium Chloride 0.9% [Saline Flush] Med 06/02/21 04:46 Active 10 ml FLUSH ASDIRECTED PRN Sodium Chloride 0.9% [Saline Flush] Med 06/02/21 04:46 Active 2.5 ml FLUSH ASDIRECTED PRN Blood Culture x2 Reflex Set [OM.PC] Stat Oth 06/02/21 07:02 Ordered Saline Lock Insert [OM.PC] Stat Oth 06/02/21 04:46 Ordered Medication Orders Enoxaparin Sodium (Enoxaparin 100 Mg/1 Ml Syringe) 75 mg 1 mg/kg (75 mg) SUBCUT STAT STA Stop: 06/02/21 08:40 Lactated Ringer's (Ringers, Lactated) 1,000 mls @ 999 mls/hr IV ASDIRECTED [facility] Last Admin: 06/02/21 04:59 Dose: 999 mls/hr Documented by: SEAGMIC Sodium Chloride (Normal Saline) 1,000 mls @ 999 mls/hr IV ASDIRECTED [facility] Last Admin: 06/02/21 06:52 Dose: 999 mls/hr Documented by: SEAGMIC Sodium Chloride (Sodium Chloride 0.9% 10 Ml Syringe) 10 ml FLUSH ASDIRECTED PRN PRN Reason: Keep Vein Open Last Admin: 06/02/21 06:53 Dose: 10 ml Documented by: SEAGMIC Sodium Chloride (Sodium Chloride 0.9% 2.5 Ml Syringe) 2.5 ml FLUSH ASDIRECTED PRN PRN Reason: Keep Vein Open Last Admin: 06/02/21 06:53 Dose: 2.5 ml Documented by: ALVIN Labs: Laboratory Tests 06/02/21 06/02/21 06/02/21 Range/Units 05:10 05:10 05:10 WBC 0.98 L (4.0-11.0) K/uL RBC 3.44 L (4.30-5.90) M/uL Hgb 11.5 L (12.0-16.0) g/dL Hct 31.1 L (36.0-46.0) % MCV 90.4 (80.0-98.0) fL MCH 33.4 H (27.0-32.0) pg MCHC 37.0 (31.0-37.0) g/dL RDW Std Deviation 47.0 (28.0-62.0) fl RDW Coeff of Khurram 14 (11.0-15.0) % Plt Count 33 L (150-400) K/uL MPV 12.70 H (7.40-12.00) fL Add Manual Diff YES Neutrophils % (Manual) 4 L (48.0-80.0) % Lymphocytes % (Manual) 16 (16.0-40.0) % Monocytes % (Manual) 80 H (0.0-15.0) % Nucleated RBC % 0.0 /100WBC Absolute Seg Neuts 0.0 L (1.4-5.7) Lymphocytes # (Manual) 0.2 L (0.6-2.4) Monocytes # (Manual) 0.8 (0.0-0.8) Nucleated RBCs # 0 K/uL Polychromasia 1+ SLIGHT INR Sodium 122 L (136-145) mmol/L Potassium 3.5 (3.5-5.1) mmol/L Chloride 83 L (98-107) mmol/L Carbon Dioxide 30.2 (21.0-32.0) mmol/L BUN 18 (7.0-18.0) mg/dL Creatinine 0.7 (0.6-1.0) mg/dL Est Cr Clr Drug Dosing 74.72 mL/min Estimated GFR (MDRD) > 60.0 ml/min Glucose 171 H (74-106) mg/dL Lactic Acid 1.4 (0.4-2.0) mmol/L Calcium 7.8 L (8.5-10.1) mg/dL Magnesium (1.8-2.4) mg/dL Total Bilirubin 1.2 H (0.2-1.0) mg/dL AST 7 L (15-37) IU/L ALT 33 (14-63) IU/L Alkaline Phosphatase 55 (46-116) U/L Troponin I < 0.050 (0.000-0.056) ng/mL Total Protein 6.4 (6.4-8.2) g/dL Albumin 2.0 L (3.4-5.0) g/dL Globulin 4.4 H (2.6-4.0) g/dL Albumin/Globulin Ratio 0.5 L (0.9-1.6) Lipase 26 L (73-393) U/L SARS-CoV-2 RNA (RA) (NEGATIVE) 06/02/21 06/02/21 06/02/21 Range/Units 05:10 05:10 06:40 WBC (4.0-11.0) K/uL RBC (4.30-5.90) M/uL Hgb (12.0-16.0) g/dL Hct (36.0-46.0) % MCV (80.0-98.0) fL MCH (27.0-32.0) pg MCHC (31.0-37.0) g/dL RDW Std Deviation (28.0-62.0) fl RDW Coeff of Khurram (11.0-15.0) % Plt Count (150-400) K/uL MPV (7.40-12.00) fL Add Manual Diff Neutrophils % (Manual) (48.0-80.0) % Lymphocytes % (Manual) (16.0-40.0) % Monocytes % (Manual) (0.0-15.0) % Nucleated RBC % /100WBC Absolute Seg Neuts (1.4-5.7) Lymphocytes # (Manual) (0.6-2.4) Monocytes # (Manual) (0.0-0.8) Nucleated RBCs # K/uL Polychromasia INR 1.14 Sodium (136-145) mmol/L Potassium (3.5-5.1) mmol/L Chloride (98-107) mmol/L Carbon Dioxide (21.0-32.0) mmol/L BUN (7.0-18.0) mg/dL Creatinine (0.6-1.0) mg/dL Est Cr Clr Drug Dosing mL/min Estimated GFR (MDRD) ml/min Glucose (74-106) mg/dL Lactic Acid (0.4-2.0) mmol/L Calcium (8.5-10.1) mg/dL Magnesium 1.1 L (1.8-2.4) mg/dL Total Bilirubin (0.2-1.0) mg/dL AST (15-37) IU/L ALT (14-63) IU/L Alkaline Phosphatase (46-116) U/L Troponin I (0.000-0.056) ng/mL Total Protein (6.4-8.2) g/dL Albumin (3.4-5.0) g/dL Globulin (2.6-4.0) g/dL Albumin/Globulin Ratio (0.9-1.6) Lipase (73-393) U/L SARS-CoV-2 RNA (RA) NEGATIVE (NEGATIVE) Meds: Medications Generic Name Dose Route Start Last Admin Trade Name Freq PRN Reason Stop Dose Admin Enoxaparin Sodium 75 mg 06/02/21 08:39 Enoxaparin 100 Mg/1 Ml Syringe 1 mg/kg (75 mg) 06/02/21 08:40 SUBCUT STAT STA Lactated Ringer's 1,000 mls @ 999 mls/hr 06/02/21 05:00 06/02/21 04:59 Ringers, Lactated IV 999 mls/hr ASDIRECTED REGINA Administration Sodium Chloride 1,000 mls @ 999 mls/hr 06/02/21 06:00 06/02/21 06:52 Normal Saline IV 999 mls/hr ASDIRECTED REGINA Administration Sodium Chloride 10 ml 06/02/21 04:46 06/02/21 06:53 Sodium Chloride 0.9% 10 Ml Syringe FLUSH 10 ml ASDIRECTED PRN Administration Keep Vein Open Sodium Chloride 2.5 ml 06/02/21 04:46 06/02/21 06:53 Sodium Chloride 0.9% 2.5 Ml Syringe FLUSH 2.5 ml ASDIRECTED PRN Administration Keep Vein Open Discontinued Medications Generic Name Dose Route Start Last Admin Trade Name Freq PRN Reason Stop Dose Admin Al Hydroxide/Mg Hydroxide 15 0 ml 06/02/21 07:27 06/02/21 07:40 ml/ Lidocaine HCl 5 ml PO 06/02/21 07:28 20 each ONETIME ONE Administration Iopamidol 100 ml 06/02/21 06:59 06/02/21 06:59 Iopamidol 755 Mg/Ml 500 Ml Multipack Bottle IVPUSH 06/02/21 07:00 100 ml ONETIME STA Administration Morphine Sulfate 4 mg 06/02/21 04:47 06/02/21 05:04 Morphine 4 Mg/Ml Syringe IVPUSH 06/02/21 04:48 Not Given ONETIME ONE Morphine Sulfate Confirm 06/02/21 04:57 06/02/21 05:01 Morphine 2 Mg/Ml Syringe Administered 06/02/21 04:58 Not Given Dose 4 mg .ROUTE .STK-MED ONE Morphine Sulfate 4 mg 06/02/21 05:00 06/02/21 05:04 Morphine 2 Mg/Ml Syringe IVPUSH 06/02/21 05:01 4 mg ONETIME ONE Administration Ondansetron HCl 4 mg 06/02/21 04:47 06/02/21 05:00 Ondansetron 4 Mg/2 Ml Sdv IVPUSH 06/02/21 04:48 4 mg ONETIME ONE Administration - Re-Assessments/Exams Free Text/Narrative Re-Assessment/Exam: 06/02/21 06:56 I picked up the patient from my partner in the end of his shift. Awaiting CT angiogram, some of the lab, reassessment and decision about disposition. 06/02/21 07:46 I discussed this case with the sister I with the patient. The patient has recently her and does not want him involved in her care. Recently he had been living with the sister and helping in her care. The sister says she knows very little about her condition but that the patient has had more than 1 visit to [place] since she moved here and has actually been kept for a while and had a magnesium infusion there. She is also had radiation and chemotherapy there. The sister says they have not sent her records from [place] yet but are in the process of doing so. The sisters not even sure what medication she should be on. The patient understands completely what I meant when I asked her about her resuscitation status and she says she is a full code. 06/02/21 08:40 CT reveals bilateral subsegmental pulmonary emboli with a generous size right ventricle. Hyponatremia hypomagnesemia difficulty taking care of her self unawareness of her medication schedule right heart strain with pulmonary emboli all indicated the need for admission and discussed with Dr. Herrera who agreed most graciously to except the patient. Departure - Departure Time of Disposition: 08:41 Condition: Fair Sepsis Event Note (ED) - Focused Exam Vital Signs: Vital Signs Temp Pulse Resp BP Pulse Ox 10/23/21 08:32 125 H 28 H 101/57 L 95 06/02/21 07:26 73 21 H 106/80 2 L 06/02/21 06:55 120 H 20 106/66 93 L 06/02/21 04:43 36.4 C 131 H 20 103/67 90 L - My Orders Last 24 Hours: My Active Orders 06/02/21 05:10 CULTURE BLOOD [BC] Stat 06/02/21 07:02 Blood Culture x2 Reflex Set [OM.PC] Stat 06/02/21 07:15 CULTURE BLOOD [BC] Stat 06/02/21 08:36 Admission Status [Patient Status] [ADT] Stat 06/02/21 08:39 Enoxaparin [Lovenox] 75 mg SUBCUT STAT STA 06/02/21 08:40 Magnesium Sulfate/Water [Magnesium Sulfate in Water 2 GM/50 ML] 2 gm Premix Bag 1 bag IV ONETIME - Assessment/Plan Last 24 Hours: My Active Orders 06/02/21 05:10 CULTURE BLOOD [BC] Stat 06/02/21 07:02 Blood Culture x2 Reflex Set [OM.PC] Stat 06/02/21 07:15 CULTURE BLOOD [BC] Stat 06/02/21 08:36 Admission Status [Patient Status] [ADT] Stat 06/02/21 08:39 Enoxaparin [Lovenox] 75 mg SUBCUT STAT STA 06/02/21 08:40 Magnesium Sulfate/Water [Magnesium Sulfate in Water 2 GM/50 ML] 2 gm Premix Bag 1 bag IV ONETIME
[2021-06-02] MEDS ORDERED: Morphine 2 MG/ML SYRINGE ONE (04:57)
[2021-06-02] MEDS ORDERED: Morphine 2 MG/ML SYRINGE IVPUSH ONE (05:00)
[2021-06-02] MEDS ORDERED: Lactated Ringers 1,000 ML IV SCH (05:00)
--- NOTE | 2021-06-02 05:21 | CR ---
INDICATION: Chest pain TECHNIQUE: Chest radiograph 1 view COMPARISON: 04/17/2021 FINDINGS: The sensitivity and specificity of the exam are moderately limited by the patient`s body habitus. Mediastinum: The mediastinum is normal in appearance. Mild stable cardiomegaly is present when allowing for differences in technique. Right Port-A-Cath is present without interval change. Lung: Linear discoid atelectasis is present in left midlung zone. No sign of pleural effusion seen. No pneumothorax is identified. Bone and Soft tissue: Unremarkable for age. IMPRESSIONS: 1. Mild stable cardiomegaly is present when allowing for differences in technique. 2. Linear discoid atelectasis is present in left midlung zone. Dictated by Jadon Linares MD @ 06/02/2021 5:19:39 AM Dictated by: Jadon Linares MD @ 06/02/2021 05:19:44 (Electronically Signed)
[2021-06-02 05:44] LABS: BLOOD UREA NITROGEN,BUN 18 mg/dL (7.0-18.0); CARBON DIOXIDE,CO2 30.2 mmol/L (21.0-32.0); CHLORIDE,CL 83 mmol/L (98-107); GLUCOSE RANDOM 171 mg/dL (74-106); LIPASE 26 U/L (73-393); POTASSIUM,K 3.5 mmol/L (3.5-5.1); SODIUM,NA 122 mmol/L (136-145)
[2021-06-02] MEDS ORDERED: Sodium Chloride 0.9% 1,000 ML IV SCH ×2 (06:00→16:35)
[2021-06-02] MEDS ORDERED: Iopamidol 755 MG/ML 500 ML Multipack Bottle IVPUSH STA (06:59)
[2021-06-02] MEDS ORDERED: Alum Hydrox/Mag Hydrox/Simeth 15 ML, Lidocaine 2% 5 ML PO ONE ×2 (07:27)
[2021-06-02] MEDS ORDERED: Enoxaparin 100 MG/1 ML Syringe SUBCUT STA (08:39)
[2021-06-02] MEDS ORDERED: Magnesium Sulfate/Water 2 GM in Premix Bag 1 BAG IV ONE (08:40)
--- NOTE | 2021-06-02 08:42 | CT ---
INDICATION : Chest pain and tachycardia Metastatic rectal carcinoma TECHNIQUE : CT Scan of the chest CT PE protocol. 100 cc nonionic contrast FINDINGS: Pulmonary arteries: Filling defects in the upper and lower segmental in lobar branches. Heart mediastinum: The right ventricle is enlarged. Small amount of pericardial fluid. Mediastinal adenopathy. There is precarinal adenopathy 1.5 cm in subcarinal adenopathy measuring 2.0 cm. Lungs and pleura: Multiple nodules in the upper lobes which are new less than 1 cm. Peripheral consolidation or alveolar opacification moderately dense medial right lower lobe. No effusions. No pneumothorax. Miscellaneous: Central venous line placement distal SVC. Upper abdomen: Both adrenal glands are mildly enlarged. No suspicious skeletal abnormality. There is an infusion port in the right chest. IMPRESSION: 1. Bilateral small lobar and segmental branch filling defects compatible with pulmonary emboli. 2. Possible right ventricular strain or enlarged right ventricle. 3. Multiple nodules as well as mediastinal adenopathy in a patient with a known history of metastatic rectal carcinoma. 4. Dense alveolar opacification medial right lower lobe could potentially represent early pulmonary infarction. 5. Abnormal results were called to the emergency room position ordering physician Yvon Levine at 8:25 a.m. Please note that all CT scans at this facility use dose modulation, iterative reconstruction, and/or weight-based dosing when appropriate to reduce radiation dose to as low as reasonably achievable. Dictated by Sam Pineda MD @ 06/02/2021 8:40:13 AM (Electronically Signed)
--- NOTE | 2021-06-02 11:59 | PCM.HP.2 ---
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 Initially diagnosed with stage IV cancer April 2019. Metastasis to lung and brain. Multiple social stressors including recent divorce, unable to care for self and no place to live. Patient is accompanied by her sister who states the patient showed up at her door 3 days ago barely able to walk. Normally patient has a walker but has been unable to walk for 3 days due to weakness and generalized pain. Patient has not eaten in 3 days. Patient is currently being followed by hematology/oncology Dr. Hadley in [facility]. As per patient sister, she was diagnosed 2 years ago and has been undergoing chemo and radiation. Patient recently established care with heme/onc in [facility]. Patient states there is also metastasis to her brain and she has underwent full head radiation. Patient received chemotherapy on 05/28/2021 in [place]. She is scheduled to receive chemotherapy every 4 weeks. Patient states she has difficulty swallowing and painful lesions in her mouth from oral thrush and esophagitis. Denies cough, fever, loss of consciousness. Patient takes oxycodone 10 mg q4hrs prn for cancer pain. ED course: Complained of chest pain and worked up for ACS rule out. Received aspirin by EMS. Pulse 120. BP 106/66. RR 20. 93% on room air. Patient received 1 L LR bolus. Patient given morphine 4 mg IV. WBC 0.98. RBC 3.44. Hgb 11.5. Hematocrit 31.1. MCV 90.4. Platelet count 33. INR 1.14. Sodium 122. Potassium 3.5. Chloride 83. Bicarb 30.2. BUN 18. Creatinine 0.7. Glucose 171. GFR greater than 60. Lactic acid 1.4. Magnesium 1.1. Total bilirubin 1.2. AST 7. ALT 33. Alk phos 55. Troponin negative. Total protein 6.4. Lipase 26. SARS-CoV-2 negative. CXR: Mild stable cardiomegaly. Linear discoid atelectasis in left midlung. Right Port-A-Cath present. No sign of pleural effusion. CT angiography: Bilateral small lobar and segmental branch filling defect compatible with pulmonary emboli. Possible enlarged right ventricle. Multiple nodules and mediastinotomy adenopathy. Dense alveolar opacification medial right lower lobe, potential pulmonary infarct. EKG: Sinus tachycardia rate of 133. Multiple PVCs with some signs of RVH. No acute ischemia. Past medical history: Invasive metastatic anal squamous cell carcinoma. Bilateral pulmonary embolisms. Peripheral neuropathy. Chronic viral hepatitis C. COPD. Polysubstance abuse. Chronic back pain. PTSD. Suicidal ideation. Depression and anxiety.. Medications: Patient and sister cannot confirm which meds she takes. Allergies: No known drug allergies. No history of transfusion reactions. Consent form for blood products signed and witnessed. CODE STATUS: Full code. Patient agitated and not willing to discuss goals of care. Advance directives/POA: Patient states she does not have a written advance directive at the moment but states she would like her sister "BARBARA HORVATH" to be power of clothing and textiles teacher to make medical decisions on her behalf if the need arises. The details this would entail is discussed in detail with the patient and her sister who both agree. Middle Chest Pain Score (Numeric/FACES): 7 Left Lower Anterior Chest Pain Score (Numeric/FACES): 10 anterioe and posterio chest pain Pain Score (Numeric/FACES): 8 - Related Data Allergies/Adverse Reactions: Allergies Allergy/AdvReac Type Severity Reaction Status Date / Time wool Allergy Rash Verified 06/02/21 10:19 Home Medications: Home Meds Furosemide 20 mg PO DAILY PRN 01/29/19 [History] Gabapentin [Neurontin] 600 mg PO BID 01/29/19 [History] Albuterol [Ventolin HFA] 2 puff INH QID PRN 02/23/19 [History] Apixaban [Eliquis] 2.5 mg PO BID 06/02/21 [History] Hydrocodone/Acetaminophen [HYDROcodone-Acetaminophen 5-325 MG] 1 each PO TID PRN 06/02/21 [History] Pantoprazole [ProTONIX] 40 mg PO BID 06/02/21 [History] ondansetron HCL [Ondansetron HCl] 4 mg PO TID PRN 06/02/21 [History] Past Medical History HEENT History: Reports: Other (See Below) Other HEENT History: hx of fx nose Cardiovascular History: Reports: None Respiratory History: Reports: COPD, PE Gastrointestinal History: Reports: GERD, Hepatitis Other Gastrointestinal History: hx of Hepatitis C- has taken medication x2 to cure it Genitourinary History: Reports: None ORDER CLERK History: Reports: Musculoskeletal History: Reports: Arthritis, Back Pain, Chronic, Fracture Other Musculoskeletal History: hx of multiple finger fx and rib, right wrist Neurological History: Reports: Concussion Psychiatric History: Reports: PTSD, Suicidal Ideation Other Psychiatric History: depression and anxiety recently due to loss of son Endocrine/Metabolic History: Reports: None Hematologic History: Reports: None Immunologic History: Reports: None Oncologic (Cancer) History: Reports: Brain, Lung Other Oncologic History: Vulvar Cancer Dermatologic History: Reports: None - Infectious Disease History Infectious Disease History: Reports: Chicken Pox, Hepatitis C, Measles, Mumps - Past Surgical History Head Surgeries/Procedures: Reports: None HEENT Surgical History: Reports: None Cardiovascular Surgical History: Reports: None Respiratory Surgical History: Reports: None GI Surgical History: Reports: Colonoscopy Female Surgical History: Reports: Section, Tubal Ligation Endocrine Surgical History: Reports: None Neurological Surgical History: Reports: None Musculoskeletal Surgical History: Reports: None Oncologic Surgical History: Reports: None Dermatological Surgical History: Reports: None Social & Family History - Family History Family Medical History: No Pertinent Family History - Tobacco Use Tobacco Use Status *Q: Current Some Day Tobacco User Years of Tobacco use: 15 Packs/Tins Daily: 0.2 - Caffeine Use Caffeine Use: Reports: Coffee, Energy Drinks, Soda, Tea - Recreational Drug Use Recreational Drug Use: Yes Drug Use in Last 12 Months: Yes Recreational Drug Type: Reports: Marijuana/Hashish Recreational Drug Use Frequency: Rarely H&P Review of Systems - Review of Systems: Review Of Systems: See Below General: Reports: Malaise, Weakness, Fatigue, Diaphoresis, Decreased Appetite, Weight Loss HEENT: Reports: Sore Throat, Other (Oral Thrush) Pulmonary: Reports: Shortness of Breath. Denies: Wheezing, Pleuritic Chest Pain, Cough Cardiovascular: Reports: Dyspnea on Exertion, Lightheadedness. Denies: Palpitations, Orthopnea Gastrointestinal: Reports: Abdominal Pain, Decreased Appetite, Nausea, Vomiting Genitourinary: Reports: Dysuria Musculoskeletal: Reports: Neck Pain, Shoulder Pain, Arm Pain, Back Pain, Leg Pain, Muscle Pain. Denies: Muscle Stiffness Skin: Reports: Rash, Change in Color, Change in Hair/Nails Psychiatric: Reports: Agitation Neurological: Reports: Dizziness, Headache, Difficulty Walking, Weakness. Denies: Confusion Hematologic/Lymphatic: Reports: Anemia Exam - Exam Exam: See Below - Vital Signs Vital Signs: Last Vital Signs Temp 98.4 F 06/02/21 10:11 Pulse 134 H 06/02/21 10:11 Resp 16 06/02/21 10:11 BP 133/74 06/02/21 10:11 Pulse Ox 93 L 06/02/21 10:11 Weight: 170 lb - Exam General: Alert, Oriented, Moderate Distress. No: Cooperative HEENT: EOMI, Hearing Intact, Pupils Equal, Pupils Reactive. No: Mucosa Moist & Stover Neck: Supple, Trachea Midline Lungs: Decreased Breath Sounds Cardiovascular: Regular Rate, Regular Rhythm GI/Abdominal Exam: Soft, No Distention, No Mass, Tender Back Exam: Decreased Range of Motion, Muscle Spasm, Paraspinal Tenderness Extremities: Leg Pain, Limited Range of Motion, Other (Dry scaly rash located on R inner thigh.). No: Pedal Edema, Sania's Sign Peripheral Pulses: 2+: Dorsalis Pedis (L), Dorsalis Pedis (R) Skin: Dry, Rash. No: Wound Neurological: No: Focal Deficit Neuro Extensive - Mental Status: Alert, Oriented x3, Normal Cognition, Memory Intact Psychiatric: Agitated - Patient Data Lab Results Last 24 hrs: Laboratory Results - last 24 hr 06/02/21 06/02/21 06/02/21 Range/Units 05:10 05:10 05:10 WBC 0.98 L (4.0-11.0) K/uL RBC 3.44 L (4.30-5.90) M/uL Hgb 11.5 L (12.0-16.0) g/dL Hct 31.1 L (36.0-46.0) % MCV 90.4 (80.0-98.0) fL MCH 33.4 H (27.0-32.0) pg MCHC 37.0 (31.0-37.0) g/dL RDW Std Deviation 47.0 (28.0-62.0) fl RDW Coeff of Khurram 14 (11.0-15.0) % Plt Count 33 L (150-400) K/uL MPV 12.70 H (7.40-12.00) fL Add Manual Diff YES Neutrophils % (Manual) 4 L (48.0-80.0) % Lymphocytes % (Manual) 16 (16.0-40.0) % Monocytes % (Manual) 80 H (0.0-15.0) % Nucleated RBC % 0.0 /100WBC Absolute Seg Neuts 0.0 L (1.4-5.7) Lymphocytes # (Manual) 0.2 L (0.6-2.4) Monocytes # (Manual) 0.8 (0.0-0.8) Nucleated RBCs # 0 K/uL Polychromasia 1+ SLIGHT INR Sodium 122 L (136-145) mmol/L Potassium 3.5 (3.5-5.1) mmol/L Chloride 83 L (98-107) mmol/L Carbon Dioxide 30.2 (21.0-32.0) mmol/L BUN 18 (7.0-18.0) mg/dL Creatinine 0.7 (0.6-1.0) mg/dL Est Cr Clr Drug Dosing 74.72 mL/min Estimated GFR (MDRD) > 60.0 ml/min Glucose 171 H (74-106) mg/dL Lactic Acid 1.4 (0.4-2.0) mmol/L Calcium 7.8 L (8.5-10.1) mg/dL Magnesium (1.8-2.4) mg/dL Total Bilirubin 1.2 H (0.2-1.0) mg/dL AST 7 L (15-37) IU/L ALT 33 (14-63) IU/L Alkaline Phosphatase 55 (46-116) U/L Troponin I < 0.050 (0.000-0.056) ng/mL Total Protein 6.4 (6.4-8.2) g/dL Albumin 2.0 L (3.4-5.0) g/dL Globulin 4.4 H (2.6-4.0) g/dL Albumin/Globulin Ratio 0.5 L (0.9-1.6) Lipase 26 L (73-393) U/L SARS-CoV-2 RNA (RA) (NEGATIVE) 06/02/21 06/02/2121 Range/Units 05:10 05:10 06:40 WBC (4.0-11.0) K/uL RBC (4.30-5.90) M/uL Hgb (12.0-16.0) g/dL Hct (36.0-46.0) % MCV (80.0-98.0) fL MCH (27.0-32.0) pg MCHC (31.0-37.0) g/dL RDW Std Deviation (28.0-62.0) fl RDW Coeff of Khurram (11.0-15.0) % Plt Count (150-400) K/uL MPV (7.40-12.00) fL Add Manual Diff Neutrophils % (Manual) (48.0-80.0) % Lymphocytes % (Manual) (16.0-40.0) % Monocytes % (Manual) (0.0-15.0) % Nucleated RBC % /100WBC Absolute Seg Neuts (1.4-5.7) Lymphocytes # (Manual) (0.6-2.4) Monocytes # (Manual) (0.0-0.8) Nucleated RBCs # K/uL Polychromasia INR 1.14 Sodium (136-145) mmol/L Potassium (3.5-5.1) mmol/L Chloride (98-107) mmol/L Carbon Dioxide (21.0-32.0) mmol/L BUN (7.0-18.0) mg/dL Creatinine (0.6-1.0) mg/dL Est Cr Clr Drug Dosing mL/min Estimated GFR (MDRD) ml/min Glucose (74-106) mg/dL Lactic Acid (0.4-2.0) mmol/L Calcium (8.5-10.1) mg/dL Magnesium 1.1 L (1.8-2.4) mg/dL Total Bilirubin (0.2-1.0) mg/dL AST (15-37) IU/L ALT (14-63) IU/L Alkaline Phosphatase (46-116) U/L Troponin I (0.000-0.056) ng/mL Total Protein (6.4-8.2) g/dL Albumin (3.4-5.0) g/dL Globulin (2.6-4.0) g/dL Albumin/Globulin Ratio (0.9-1.6) Lipase (73-393) U/L SARS-CoV-2 RNA (RA) NEGATIVE (NEGATIVE) Result Diagrams: 06/03/21 04:20 06/03/21 04:20 Sepsis Event Note - Evaluation Sepsis Screening Result: Sepsis Risk - Focused Exam Vital Signs: Vital Signs Temp Pulse Resp BP Pulse Ox 06/02/21 10:11 98.4 F 134 H 16 133/74 93 L 06/02/21 08:32 125 H 28 H 101/57 L 95 06/02/21 07:26 73 21 H 106/80 2 L 06/02/21 06:55 120 H 20 106/66 93 L 06/02/21 04:43 97.5 F 131 H 20 103/67 90 L - Problem List (1) Thrombocytopenia SNOMED Code(s): 375465775 ICD Code: D69.6 - THROMBOCYTOPENIA, UNSPECIFIED Status: Acute (2) Pancytopenia SNOMED Code(s): 563532925 ICD Code: D61.818 - OTHER PANCYTOPENIA Status: Acute (3) Bilateral pulmonary embolism SNOMED Code(s): 79446958 ICD Code: I26.99 - OTHER PULMONARY EMBOLISM WITHOUT ACUTE COR PULMONALE Status: Acute (4) Disorder of right ventricle of heart SNOMED Code(s): 053215029 ICD Code: I51.9 - HEART DISEASE, UNSPECIFIED Status: Acute (5) Hypomagnesemia SNOMED Code(s): 656647312 ICD Code: E83.42 - HYPOMAGNESEMIA Status: Acute (6) Hyponatremia SNOMED Code(s): 88141825 ICD Code: E87.1 - HYPO-OSMOLALITY AND HYPONATREMIA Status: Acute (7) Metastasis SNOMED Code(s): 000244229 ICD Code: C79.9 - SECONDARY MALIGNANT NEOPLASM OF UNSPECIFIED SITE Status: Acute Qualifiers: Area of secondary neoplastic involvement: unspecified site Qualified Code(s): C79.9 - Secondary malignant neoplasm of unspecified site (8) Metastasis to brain Status: Acute (9) Squamous cell carcinoma of anus SNOMED Code(s): 291008380, 275476308 ICD Code: C21.0 - MALIGNANT NEOPLASM OF ANUS, UNSPECIFIED Status: Acute Problem List Initiated/Reviewed/Updated: Yes Orders Last 24hrs: Active Orders 24 hr Category Date Time Status Admission Status [Patient Status] [ADT] Stat ADT 06/02/21 09:10 Active CULTURE BLOOD [BC] Stat Lab 06/02/21 05:10 Received CULTURE BLOOD [BC] Stat Lab 06/02/21 07:15 Received Lactated Ringers [Ringers, Lactated] 1,000 ml Med 06/02/21 05:00 Active IV ASDIRECTED Sodium Chloride 0.9% [Normal Saline] 1,000 ml Med 06/02/21 06:00 Active IV ASDIRECTED Sodium Chloride 0.9% [Saline Flush] Med 06/02/21 04:46 Active 10 ml FLUSH ASDIRECTED PRN Sodium Chloride 0.9% [Saline Flush] Med 06/02/21 04:46 Active 2.5 ml FLUSH ASDIRECTED PRN Blood Culture x2 Reflex Set [OM.PC] Stat Oth 06/02/21 07:02 Ordered Saline Lock Insert [OM.PC] Stat Oth 06/02/21 04:46 Ordered Medication Orders Lactated Ringer's (Ringers, Lactated) 1,000 mls @ 999 mls/hr IV ASDIRECTED REGINA Last Admin: 06/02/21 04:59 Dose: 999 mls/hr Documented by: SEAGMIC Sodium Chloride (Normal Saline) 1,000 mls @ 999 mls/hr IV ASDIRECTED REGINA Last Admin: 06/02/21 06:52 Dose: 999 mls/hr Documented by: SEAGMIC Sodium Chloride (Sodium Chloride 0.9% 10 Ml Syringe) 10 ml FLUSH ASDIRECTED PRN PRN Reason: Keep Vein Open Last Admin: 06/02/21 06:53 Dose: 10 ml Documented by: REYIC Sodium Chloride (Sodium Chloride 0.9% 2.5 Ml Syringe) 2.5 ml FLUSH ASDIRECTED PRN PRN Reason: Keep Vein Open Last Admin: 06/02/21 06:53 Dose: 2.5 ml Documented by: ALVIN Assessment/Plan Comment:: 61-year-old female with 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 Consulted hematology/oncology in [facility] who recommended holding Eliquis until platelets are greater than 50,000, transfuse platelets, Neupogen 480 mcg subcu injection for 3 days, Nplate injection. -Patient received 1 L NS and 1 L LR. Repeat sodium. Serum osmolality. Urine o smolality. Urine sodium. -Patient received 2 g magnesium. -Hold Eliquis anticoagulation until platelets greater than 50,000. -Pain control. -Informed consent obtained and form signed for blood products. Type and cross. Transfuse 1 unit platelets. -Zofran for nausea. Patient unwilling to discuss goals of care. CODE STATUS: Full code. Power of clothing and textiles teacher: As per patient, he would like her medical power of clothing and textiles teacher to be her sister, Barbara Horvath. As per patient and the sister they had previously had a written document but does not know where it is. They both verbally consent to listing the patient's sister as her POA.
[2021-06-02] MEDS ORDERED: Albuterol 8 GM Inhaler INH PRN (14:00)
[2021-06-02] MEDS ORDERED: Ondansetron 4 MG/2 ML SDV IVPUSH PRN (14:00)
[2021-06-02] MEDS ORDERED: Acetaminophen/HYDROcodone 325-5 MG Tab PO PRN (14:00)
[2021-06-02 14:35] LABS: BLOOD UREA NITROGEN,BUN 14 mg/dL (7.0-18.0); CARBON DIOXIDE,CO2 26.9 mmol/L (21.0-32.0); CHLORIDE,CL 86 mmol/L (98-107); GLUCOSE RANDOM 156 mg/dL (74-106); POTASSIUM,K 3.1 mmol/L (3.5-5.1); SODIUM,NA 123 mmol/L (136-145)
[2021-06-02] MEDS ORDERED: Potassium Chloride 20 MEQ Tab.ER PO ONE (15:15)
[2021-06-02] MEDS: Phosphorus #1 250 MG Tab PO SCH ×3 (15:34→23:37)
[2021-06-02] MEDS: Magnesium Oxide 400 MG Tab PO SCH ×2 (15:35→20:01)
[2021-06-02] MEDS ORDERED: Gabapentin 300 MG Cap PO SCH (21:00)
--- NOTE | 2021-06-02 21:31 | CR ---
INDICATION: Hypoxia. TECHNIQUE: Portable AP image of the chest. COMPARISON: Portable chest x-ray from earlier today. FINDINGS: New infiltrates in the inferomedial right lung and in the periphery of the mid to lower left lung. No pleural effusion. Heart size normal and pulmonary veins normal in caliber. Port-A-Cath, as before. No significant bony abnormality. IMPRESSION: New infiltrates in the inferomedial right lung and in the periphery of the mid to lower left lung. Dictated by Rambo Carrion MD @ 06/02/2021 9:30:35 PM (Electronically Signed)
[2021-06-02] MEDS ORDERED: Enoxaparin 40 MG/0.4 ML Syringe SUBCUT SCH (21:45)
--- NOTE | 2021-06-02 21:45 | PCM.SN.2 ---
- Free Text/Narrative Note: Patient this evening was transferred to the ICU after her blood pressures lowered to the 60s systolic. The chest pain has returned. Her oxygen saturations were 80% on 100% NRB. She has been transition to FNC and saturation are in the mid 90s now. I did discuss this case with the eICU patient access registrar. We will hold off on platelet transfusion. We will give 500ml bolus fluid and start levophed if needed. We will order dopplar legs, CXR, and EKG. Due to history of brain metastasis thrombolytics is contraindicated. Patient does not appear infected but will culture blood and start broad spectrum antibiotics and order procalcitonin. Time Documentation
[2021-06-02] MEDS: Piperacillin/Tazobactam 3.375 GM in Sodium Chloride 0.9% 50 ML IV SCH (21:58)
[2021-06-02] MEDS ORDERED: Levofloxacin/Dextrose 5%-Water 750 MG in Premix Bag 1 BAG IV SCH (22:00)
[2021-06-02] MEDS ORDERED: Sodium Chloride 0.9% 500 ML IV SCH (22:00)
[2021-06-02] MEDS ORDERED: Pantoprazole 40 MG in Sodium Chloride 0.9% 10 ML IV SCH (22:45)
--- NOTE | 2021-06-02 22:49 | PN ---
THC Physician - Brief Progress [id number]/23/2021 22:37[facility] N[place] ton, [place], [place] - MWN (YANIRAN) - MWN SCARLETT ROMEODate of Service 06/02/2021 22:37HPI/Josette nts of Note Chart reviewed and case d/w Dr Herrera. Scarlett Howard is a 61 year old lady admitted CP, tachycardia. Dx with PE and started on Lovenox 1 mg/kg (is on Eliquis at home). Pancytopenic. Now trsf to ICU due to being hypoxemic and hypotensive. Sat80% on NRBM, improved on HFNC. On camera, the patient is tachycardic and mildly tachypneic, not using any accessory respiraotry muscles. She a ppeared in moderate distress upon arrival to the ICU, improved subsequently but still appears in some discomfort.PMH: rectal CA mets to lung and brain on chemo (4 days HEDIS MANAGER) and XRT, thrush esophagitis, COPD, Hep C in remission, GERD, depression and anxiety.CTPA: multiple PEs and pulmonary infarctions.A /P:1. Acute b/l PEsNow with hypoxemia and hemodynamic instability, likely related to another PE or pr ogression of existing ones.Contraindication to thrombolysis x brain mets, risk of bleeding exceed pos sible benefits.STAT US b/l LE and if she has DVT recommend IVC filter.Continue Lovenox 1 mg/kg (would round to 80 mg).2. HypotensionNS 500 bolus. May repeat if needed.Levophed if needed to keep MAP 65 a nd above.Empiric Abx for now (has dense consolidation on CT though more likely to be infarct.Can de-e scalate based on cultures and procalcitonin results in conjunction with clinical evolution.3. Pancyto peniaStarted on Neupogen.Given PEs, recommend to hold off on platelet transfusion or other prothrombo tic interventions unless patient is bleeding or PLTs<10.4. GI/DVT prophylaxis x will start PPI as pat ient is high risk due to anticoagulation, pancytopenia and acute stressors. Lovenox, SCDs and mobilit y protocol.Interventions Major-Hypotension - evaluation and management, Hypoxemia - evaluation and ma nagement, Other: pancytopenia
[2021-06-02] MEDS ORDERED: VANCOmycin 2 GM/400 ML 2 GM in Premix Bag 1 BAG IV ONE (23:00)
--- NOTE | 2021-06-02 23:08 | PCM.PRNOTE ---
- Free Text/Narrative Note: Anes Note I was called to provide IV access for this patient with difficult veins. A 22 TN was placed in left thumb. Time with patient [id number] Quoc Gaston CRNA
[2021-06-02] MEDS ORDERED: Fluconazole 100 MG Tab PO ONE (23:13)
[2021-06-02 23:17] LABS: CARBON DIOXIDE,CO2 27.4 mmol/L (21.0-32.0); POTASSIUM,K 3.5 mmol/L (3.5-5.1)
[2021-06-02] MEDS ORDERED: Pantoprazole 40 MG Vial ONE (23:24)
[2021-06-02] MEDS ORDERED: Sodium Chloride 0.9% 500 ML IV ONE (23:33)
[2021-06-02] MEDS ORDERED: Lidocaine 5% 700 MG Patch TRDERM ONE (23:51)
--- NOTE | 2021-06-03 01:07 | US ---
INDICATION: Pulmonary embolism TECHNIQUE: Ultrasound venous duplex bilateral lower extremities. Real-time andrade-scale (B mode 2D), color Doppler, and spectral Doppler imaging were performed with compression and augmentation. COMPARISON: None FINDINGS: Deep veins: The bilateral common femoral, femoral, popliteal, and visualized calf veins are fully compressible, demonstrate normal color flow, and normal response to mechanical augmentation. The Duplex Doppler waveforms are normal in appearance. Superficial veins: The visualized greater saphenous and superficial veins of the leg and calf are unremarkable. Soft tissue: No masses or cysts are identified. No adenopathy is seen. IMPRESSION: 1. No sonographic evidence of acute deep venous thrombosis seen in either lower extremities. Dictated by: Jadon Linares MD @ 06/03/2021 01:06:08 (Electronically Signed)
[2021-06-03] MEDS: Piperacillin/Tazobactam 3.375 GM in Sodium Chloride 0.9% 50 ML IV SCH (03:05)
[2021-06-03 04:44] LABS: CARBON DIOXIDE,CO2 24.3 mmol/L (21.0-32.0); POTASSIUM,K 3.1 mmol/L (3.5-5.1)
[2021-06-03] MEDS ORDERED: Amiodarone 150 MG in Dextrose 5% in Water 100 ML IV ONE ×2 (04:58)
[2021-06-03] MEDS ORDERED: Phenylephrine 10 MG in Sodium Chloride 0.9% 99 ML IV SCH (05:00)
[2021-06-03] MEDS ORDERED: DEXTROSE ISO OSM IV ONE ×2 (05:07)
[2021-06-03] MEDS ORDERED: AMIODARONE IV ONE ×2 (05:07)
--- NOTE | 2021-06-03 05:23 | PN ---
THC Physician - Brief Progress [id number]/24/2021 05:11[facility] [place] - ALTONN (NERIS) - YESENIA ANISA ROMEODate of Service 06/03/2021 05:11HPI/Josette nts of Note Called on camera for HR >200. Appears to be a regular rhythm on the monitor. Patient moan ing. The HR has been going up and down for the last few minutes. Patient on Levophed, has been titrai ng up. Plan:Start Amio bolus and drip.Change Levophed to Claus.Stop IV fluids and check BNP.Check Mag w ith am labs.Interventions Major-Arrhythmia - evaluation and management
[2021-06-03] MEDS ORDERED: Acetaminophen 1,000 MG in Premix Bag 1 BAG IV ONE (05:24)
[2021-06-03] MEDS ORDERED: Morphine 2 MG/ML SYRINGE IVPUSH PRN (07:02)
[2021-06-03] MEDS ORDERED: LORazepam 2 MG/ML SDV IVPUSH PRN (07:03)
--- NOTE | 2021-06-03 07:11 | PCM.PN ---
- General Info Date of Service: 06/03/21 - Review of Systems Systems Review Comment:: patient reports chest pain has improved, is tired and does not want to struggle any more. She is requesting to transition to comfort care - Patient Data Vitals - Most Recent: Last Vital Signs Temp 36.9 C 06/03/21 03:00 Pulse 135 H 06/02/21 22:37 Resp 27 H 06/03/21 06:00 BP 77/52 L 06/03/21 06:00 Pulse Ox 86 L 06/03/21 06:00 Weight - Most Recent: 77.111 kg I&O - Last 24 Hours: Intake & Output 06/02/21 06/03/21 06/03/21 22:59 06:59 14:59 Intake Total 1561 2261 Balance 1561 2261 Lab Results Last 24 Hours: Laboratory Results - last 24 hr 06/02/21 06/02/21 06/02/21 Range/Units 05:10 05:10 06:40 WBC (4.0-11.0) K/uL RBC (4.30-5.90) M/uL Hgb (12.0-16.0) g/dL Hct (36.0-46.0) % MCV (80.0-98.0) fL MCH (27.0-32.0) pg MCHC (31.0-37.0) g/dL RDW Std Deviation (28.0-62.0) fl RDW Coeff of Khurram (11.0-15.0) % Plt Count (150-400) K/uL MPV (7.40-12.00) fL Add Manual Diff Nucleated RBC % /100WBC Nucleated RBCs # K/uL INR 1.14 ABG pH (7.35-7.45) ABG pCO2 (35-45) mmHG ABG pO2 (80-105) mmHG ABG HCO3 (22-26) mEq/L ABG Total CO2 (23-27) mmol/L ABG Base Excess (-2.0-3.0) Sodium (136-145) mmol/L Potassium (3.5-5.1) mmol/L Chloride (98-107) mmol/L Carbon Dioxide (21.0-32.0) mmol/L BUN (7.0-18.0) mg/dL Creatinine (0.6-1.0) mg/dL Est Cr Clr Drug Dosing mL/min Estimated GFR (MDRD) ml/min Glucose (74-106) mg/dL Lactic Acid (0.4-2.0) mmol/L Calcium (8.5-10.1) mg/dL Phosphorus (2.6-4.7) mg/dL Magnesium 1.1 L (1.8-2.4) mg/dL Troponin I (0.000-0.056) ng/mL B-Natriuretic Peptide (<100) PG/ML SARS-CoV-2 RNA (RA) NEGATIVE (NEGATIVE) Blood Type Antibody Screen 06/02/21 06/02/21 06/02/21 Range/Units 13:19 14:10 14:10 WBC (4.0-11.0) K/uL RBC (4.30-5.90) M/uL Hgb (12.0-16.0) g/dL Hct (36.0-46.0) % MCV (80.0-98.0) fL MCH (27.0-32.0) pg MCHC (31.0-37.0) g/dL RDW Std Deviation (28.0-62.0) fl RDW Coeff of Khurram (11.0-15.0) % Plt Count (150-400) K/uL MPV (7.40-12.00) fL Add Manual Diff Nucleated RBC % /100WBC Nucleated RBCs # K/uL INR ABG pH (7.35-7.45) ABG pCO2 (35-45) mmHG ABG pO2 (80-105) mmHG ABG HCO3 (22-26) mEq/L ABG Total CO2 (23-27) mmol/L ABG Base Excess (-2.0-3.0) Sodium 123 L (136-145) mmol/L Potassium 3.1 L (3.5-5.1) mmol/L Chloride 86 L (98-107) mmol/L Carbon Dioxide 26.9 (21.0-32.0) mmol/L BUN 14 (7.0-18.0) mg/dL Creatinine 0.6 (0.6-1.0) mg/dL Est Cr Clr Drug Dosing 79.85 mL/min Estimated GFR (MDRD) > 60.0 ml/min Glucose 156 H (74-106) mg/dL Lactic Acid (0.4-2.0) mmol/L Calcium 7.7 L (8.5-10.1) mg/dL Phosphorus 1.5 L (2.6-4.7) mg/dL Magnesium 1.7 L (1.8-2.4) mg/dL Troponin I (0.000-0.056) ng/mL B-Natriuretic Peptide (<100) PG/ML SARS-CoV-2 RNA (RA) (NEGATIVE) Blood Type A POSITIVE Antibody Screen NEGATIVE 06/02/21 06/02/21 06/02/21 Range/Units 21:49 21:49 21:54 WBC (4.0-11.0) K/uL RBC (4.30-5.90) M/uL Hgb (12.0-16.0) g/dL Hct (36.0-46.0) % MCV (80.0-98.0) fL MCH (27.0-32.0) pg MCHC (31.0-37.0) g/dL RDW Std Deviation (28.0-62.0) fl RDW Coeff of Khurram (11.0-15.0) % Plt Count (150-400) K/uL MPV (7.40-12.00) fL Add Manual Diff Nucleated RBC % /100WBC Nucleated RBCs # K/uL INR ABG pH (7.35-7.45) ABG pCO2 (35-45) mmHG ABG pO2 (80-105) mmHG ABG HCO3 (22-26) mEq/L ABG Total CO2 (23-27) mmol/L ABG Base Excess (-2.0-3.0) Sodium 124 L (136-145) mmol/L Potassium 3.5 (3.5-5.1) mmol/L Chloride 89 L (98-107) mmol/L Carbon Dioxide 27.4 (21.0-32.0) mmol/L BUN 19 H (7.0-18.0) mg/dL Creatinine 1.2 H (0.6-1.0) mg/dL Est Cr Clr Drug Dosing 39.92 mL/min Estimated GFR (MDRD) 46.0 ml/min Glucose 153 H (74-106) mg/dL Lactic Acid 3.8 H* (0.4-2.0) mmol/L Calcium 7.0 L (8.5-10.1) mg/dL Phosphorus (2.6-4.7) mg/dL Magnesium (1.8-2.4) mg/dL Troponin I < 0.050 (0.000-0.056) ng/mL B-Natriuretic Peptide (<100) PG/ML SARS-CoV-2 RNA (RA) (NEGATIVE) Blood Type Antibody Screen 06/02/21 06/02/21 06/03/21 Range/Units 22:56 23:00 04:20 WBC 0.67 L (4.0-11.0) K/uL RBC 2.82 L (4.30-5.90) M/uL Hgb 9.8 L 9.4 L (12.0-16.0) g/dL Hct 26.8 L 25.8 L (36.0-46.0) % MCV 91.5 (80.0-98.0) fL MCH 33.3 H (27.0-32.0) pg MCHC 36.4 (31.0-37.0) g/dL RDW Std Deviation 49.0 (28.0-62.0) fl RDW Coeff of Khurram 15 (11.0-15.0) % Plt Count 29 L (150-400) K/uL MPV 10.00 (7.40-12.00) fL Add Manual Diff YES Nucleated RBC % 5.1 /100WBC Nucleated RBCs # 1 K/uL INR ABG pH 7.48 H (7.35-7.45) ABG pCO2 34 L (35-45) mmHG ABG pO2 44 L (80-105) mmHG ABG HCO3 26 (22-26) mEq/L ABG Total CO2 23.3 (23-27) mmol/L ABG Base Excess 2.2 (-2.0-3.0) Sodium (136-145) mmol/L Potassium (3.5-5.1) mmol/L Chloride (98-107) mmol/L Carbon Dioxide (21.0-32.0) mmol/L BUN (7.0-18.0) mg/dL Creatinine (0.6-1.0) mg/dL Est Cr Clr Drug Dosing mL/min Estimated GFR (MDRD) ml/min Glucose (74-106) mg/dL Lactic Acid (0.4-2.0) mmol/L Calcium (8.5-10.1) mg/dL Phosphorus (2.6-4.7) mg/dL Magnesium (1.8-2.4) mg/dL Troponin I (0.000-0.056) ng/mL B-Natriuretic Peptide (<100) PG/ML SARS-CoV-2 RNA (RA) (NEGATIVE) Blood Type Antibody Screen 06/03/21 06/03/21 06/03/21 Range/Units 04:20 04:20 04:20 WBC (4.0-11.0) K/uL RBC (4.30-5.90) M/uL Hgb (12.0-16.0) g/dL Hct (36.0-46.0) % MCV (80.0-98.0) fL MCH (27.0-32.0) pg MCHC (31.0-37.0) g/dL RDW Std Deviation (28.0-62.0) fl RDW Coeff of Khurram (11.0-15.0) % Plt Count (150-400) K/uL MPV (7.40-12.00) fL Add Manual Diff Nucleated RBC % /100WBC Nucleated RBCs # K/uL INR ABG pH (7.35-7.45) ABG pCO2 (35-45) mmHG ABG pO2 (80-105) mmHG ABG HCO3 (22-26) mEq/L ABG Total CO2 (23-27) mmol/L ABG Base Excess (-2.0-3.0) Sodium 127 L (136-145) mmol/L Potassium 3.1 L (3.5-5.1) mmol/L Chloride 92 L (98-107) mmol/L Carbon Dioxide 24.3 (21.0-32.0) mmol/L BUN 21 H (7.0-18.0) mg/dL Creatinine 1.0 (0.6-1.0) mg/dL Est Cr Clr Drug Dosing 47.91 mL/min Estimated GFR (MDRD) 56.7 ml/min Glucose 152 H (74-106) mg/dL Lactic Acid 3.7 H* (0.4-2.0) mmol/L Calcium 6.4 L (8.5-10.1) mg/dL Phosphorus (2.6-4.7) mg/dL Magnesium 1.8 (1.8-2.4) mg/dL Troponin I (0.000-0.056) ng/mL B-Natriuretic Peptide 309 H (<100) PG/ML SARS-CoV-2 RNA (RA) (NEGATIVE) Blood Type Antibody Screen Srinivas Results Last 24 Hours: Microbiology 06/02/21 05:10 Aerobic Blood Culture - Preliminary Blood - Venous NO GROWTH AFTER 1 DAY Anaerobic Blood Culture - Preliminary NO GROWTH AFTER 1 DAY Med Orders - Current: Current Medications Hydrocodone Bitart/Acetaminophen (Acetaminophen/Hydrocodone 325-5 Mg Tab) 1 tab PO TID PRN PRN Reason: Pain (severe 7-10) Last Admin: 06/02/21 19:49 Dose: 1 tab Documented by: Albuterol (Albuterol 8 Gm Inhaler) 0 gm INH Q6HRRT PRN PRN Reason: Shortness of Breath Enoxaparin Sodium (Enoxaparin 40 Mg/0.4 Ml Syringe) 80 mg SUBCUT Q12H [facility] Last Admin: 06/02/21 22:05 Dose: 80 mg Documented by: Filgrastim (Filgrastim 480 Mcg/0.8 Ml Syringe) 480 mcg SUBCUT DAILY [facility] Stop: 06/04/21 09:01 Last Admin: 06/02/21 13:40 Dose: 480 mcg Documented by: Gabapentin (Gabapentin 300 Mg Cap) 600 mg PO BID [facility] Last Admin: 06/02/21 20:01 Dose: 600 mg Documented by: Piperacillin Sod/Tazobactam (Sod 3.375 gm/ Sodium Chloride) 50 mls @ 100 mls/hr IV Q6H [facility] Last Admin: 06/03/21 03:05 Dose: 100 mls/hr Documented by: Levofloxacin/Dextrose 750 mg/ (Premix) 150 mls @ 100 mls/hr IV Q24H [facility] Last Admin: 06/02/21 23:13 Dose: 100 mls/hr Documented by: Norepinephrine Bitartrate (Norepinephr-0.9% Nacl 4 Mg/250) 4 mg in 250 mls @ 7.5 mls/hr IV TITRATE [facility]; Protocol Last Admin: 06/03/21 06:24 Dose: 16 mcg/min, 60 mls/hr Documented by: Pantoprazole Sodium 40 mg/ (Sodium Chloride) 10 mls @ 300 mls/hr IV DAILY [facility] Last Admin: 06/02/21 23:28 Dose: 300 mls/hr Documented by: Vancomycin HCl 1.25 gm/ Sodium (Chloride) 250 mls @ 166.667 mls/hr IV Q24H [facility] Phenylephrine HCl 10 mg/ (Sodium Chloride) 100 mls @ 24 mls/hr IV TITRATE [facility]; Protocol Last Titration: 06/03/21 05:51 Dose: 50 mcg/min, 30 mls/hr Documented by: Amiodarone HCl/Dextrose (Nexterone In Dextrose 360 Mg/200 Ml) 360 mg in 200 mls @ 33.333 mls/hr IV ASDIRECTED [facility]; Protocol Last Admin: 06/03/21 05:24 Dose: 1 mg/min, 33.333 mls/hr Documented by: Lorazepam (Lorazepam 2 Mg/Ml Sdv) 1 mg IVPUSH Q4H PRN PRN Reason: Agitation Magnesium Oxide (Magnesium Oxide 400 Mg Tab) 400 mg PO BID [facility] Last Admin: 06/02/21 20:01 Dose: 400 mg Documented by: Morphine Sulfate (Morphine 2 Mg/Ml Syringe) 2 mg IVPUSH Q2H PRN PRN Reason: Pain Ondansetron HCl (Ondansetron 4 Mg/2 Ml Sdv) 4 mg IVPUSH Q4H PRN PRN Reason: Nausea Last Admin: 06/03/21 00:49 Dose: 4 mg Documented by: Sodium Chloride (Sodium Chloride 0.9% 10 Ml Syringe) 10 ml FLUSH ASDIRECTED PRN PRN Reason: Keep Vein Open Last Admin: 06/02/21 06:53 Dose: 10 ml Documented by: Sodium Chloride (Sodium Chloride 0.9% 2.5 Ml Syringe) 2.5 ml FLUSH ASDIRECTED PRN PRN Reason: Keep Vein Open Last Admin: 06/02/21 06:53 Dose: 2.5 ml Documented by: Sodium Phosphate (Phosphorus #1 250 Mg Tab) 250 mg PO QID [facility] Last Admin: 06/02/21 23:37 Dose: 250 mg Documented by: Vancomycin HCl (Pharmacy To Dose - Vancomycin) 1 dose .XX ASDIRECTED [facility] Discontinued Medications Al Hydroxide/Mg Hydroxide 15 (ml/ Lidocaine HCl 5 ml) 0 ml PO ONETIME ONE Stop: 06/02/21 07:28 Last Admin: 06/02/21 07:40 Dose: 20 each Documented by: Enoxaparin Sodium (Enoxaparin 100 Mg/1 Ml Syringe) 75 mg 1 mg/kg (75 mg) SUBCUT STAT STA Stop: 06/02/21 08:40 Last Admin: 06/02/21 08:57 Dose: 75 mg Documented by: Fluconazole (Fluconazole 100 Mg Tab) 200 mg PO ONETIME ONE Stop: 06/02/21 23:14 Last Admin: 06/02/21 23:37 Dose: 200 mg Documented by: Lactated Ringer's (Ringers, Lactated) 1,000 mls @ 999 mls/hr IV ASDIRECTED [facility] Last Admin: 06/02/21 04:59 Dose: 999 mls/hr Documented by: Sodium Chloride (Normal Saline) 1,000 mls @ 999 mls/hr IV ASDIRECTED [facility] Last Admin: 06/02/21 06:52 Dose: 999 mls/hr Documented by: Magnesium Sulfate 2 gm/ Premix 50 mls @ 25 mls/hr IV ONETIME ONE Stop: 06/02/21 10:39 Last Admin: 06/02/21 08:57 Dose: 25 mls/hr Documented by: Sodium Chloride (Normal Saline) 1,000 mls @ 125 mls/hr IV ASDIRECTED [facility] Last Infusion: 06/03/21 03:40 Dose: 125 mls/hr Documented by: Norepinephrine Bitartrate (Norepinephr-0.9% Nacl 4 Mg/250) Confirm Administered Dose 4 mg in 250 mls @ as directed IV .STK-MED ONE Stop: 06/02/21 21:03 Last Admin: 06/02/21 22:15 Dose: Not Given Documented by: Vancomycin HCl 2 gm/ Premix 400 mls @ 200 mls/hr IV ONETIME ONE Stop: 06/03/21 00:59 Last Admin: 06/03/21 00:50 Dose: 200 mls/hr Documented by: Sodium Chloride (Normal Saline) 500 mls @ 999 mls/hr IV BOLUS [facility] Last Admin: 06/02/21 21:39 Dose: 999 mls/hr Documented by: Sodium Chloride (Normal Saline) 500 mls @ 999 mls/hr IV .Bolus ONE Stop: 06/03/21 00:03 Last Admin: 06/03/21 00:13 Dose: 999 mls/hr Documented by: Amiodarone HCl 150 mg/ (Dextrose/Water) 103 mls @ 600 mls/hr IV .BOLUS ONE Stop: 06/03/21 05:08 Last Admin: 06/03/21 05:29 Dose: Not Given Documented by: Amiodarone HCl/Dextrose 150 mg (/ Premix) 100 mls @ 582.524 mls/hr IV .BOLUS ONE Stop: 06/03/21 05:08 Last Admin: 06/03/21 05:11 Dose: 582.524 mls/hr Documented by: Acetaminophen 1,000 mg/ Premix 100 mls @ 400 mls/hr IV NOW ONE Stop: 06/03/21 05:38 Iopamidol (Iopamidol 755 Mg/Ml 500 Ml Multipack Bottle) 100 ml IVPUSH ONETIME STA Stop: 06/02/21 07:00 Last Admin: 06/02/21 06:59 Dose: 100 ml Documented by: Lidocaine (Lidocaine 5% 700 Mg Patch) 700 mg TRDERM ONETIME ONE Stop: 06/02/21 23:52 Last Admin: 06/03/21 00:13 Dose: 700 mg Documented by: Morphine Sulfate (Morphine 4 Mg/Ml Syringe) 4 mg IVPUSH ONETIME ONE Stop: 06/02/21 04:48 Last Admin: 06/02/21 05:04 Dose: Not Given Documented by: Morphine Sulfate (Morphine 2 Mg/Ml Syringe) Confirm Administered Dose 4 mg .ROUTE .STK-MED ONE Stop: 06/02/21 04:58 Last Admin: 06/02/21 05:01 Dose: Not Given Documented by: Morphine Sulfate (Morphine 2 Mg/Ml Syringe) 4 mg IVPUSH ONETIME ONE Stop: 06/02/21 05:01 Last Admin: 06/02/21 05:04 Dose: 4 mg Documented by: Ondansetron HCl (Ondansetron 4 Mg/2 Ml Sdv) 4 mg IVPUSH ONETIME ONE Stop: 06/02/21 04:48 Last Admin: 06/02/21 05:00 Dose: 4 mg Documented by: Pantoprazole Sodium (Pantoprazole 40 Mg Vial) Confirm Administered Dose 40 mg .ROUTE .STK-MED ONE Stop: 06/02/21 23:25 Last Admin: 06/02/21 23:30 Dose: Not Given Documented by: Potassium Chloride (Potassium Chloride 20 Meq Tab.Er) 40 meq PO ONETIME ONE Stop: 06/02/21 15:16 Last Admin: 06/02/21 15:34 Dose: 40 meq Documented by: Romiplostim (Romiplostim 250 Mcg Vial) 80 mcg SUBCUT ONETIME ONE Stop: 06/02/21 13:31 Last Admin: 06/02/21 13:40 Dose: 80 mcg Documented by: - Exam General: Alert, Cooperative Lungs: Rhonchi, Other (tachypnic) Cardiovascular: Regular Rhythm, Tachycardia GI/Abdominal Exam: Soft, Non-Tender, No Distention Extremities: Non-Tender, No Pedal Edema Skin: Warm, Dry, Intact Neurological: No New Focal Deficit - Patient Data Lab Results Last 24 hrs: Laboratory Results - last 24 hr 06/02/21 06/02/21 06/02/21 Range/Units 05:10 05:10 06:40 WBC (4.0-11.0) K/uL RBC (4.30-5.90) M/uL Hgb (12.0-16.0) g/dL Hct (36.0-46.0) % MCV (80.0-98.0) fL MCH (27.0-32.0) pg MCHC (31.0-37.0) g/dL RDW Std Deviation (28.0-62.0) fl RDW Coeff of Khurram (11.0-15.0) % Plt Count (150-400) K/uL MPV (7.40-12.00) fL Add Manual Diff Nucleated RBC % /100WBC Nucleated RBCs # K/uL INR 1.14 ABG pH (7.35-7.45) ABG pCO2 (35-45) mmHG ABG pO2 (80-105) mmHG ABG HCO3 (22-26) mEq/L ABG Total CO2 (23-27) mmol/L ABG Base Excess (-2.0-3.0) Sodium (136-145) mmol/L Potassium (3.5-5.1) mmol/L Chloride (98-107) mmol/L Carbon Dioxide (21.0-32.0) mmol/L BUN (7.0-18.0) mg/dL Creatinine (0.6-1.0) mg/dL Est Cr Clr Drug Dosing mL/min Estimated GFR (MDRD) ml/min Glucose (74-106) mg/dL Lactic Acid (0.4-2.0) mmol/L Calcium (8.5-10.1) mg/dL Phosphorus (2.6-4.7) mg/dL Magnesium 1.1 L (1.8-2.4) mg/dL Troponin I (0.000-0.056) ng/mL B-Natriuretic Peptide (<100) PG/ML SARS-CoV-2 RNA (RA) NEGATIVE (NEGATIVE) Blood Type Antibody Screen 06/02/21 06/02/21 06/02/21 Range/Units 13:19 14:10 14:10 WBC (4.0-11.0) K/uL RBC (4.30-5.90) M/uL Hgb (12.0-16.0) g/dL Hct (36.0-46.0) % MCV (80.0-98.0) fL MCH (27.0-32.0) pg MCHC (31.0-37.0) g/dL RDW Std Deviation (28.0-62.0) fl RDW Coeff of Khurram (11.0-15.0) % Plt Count (150-400) K/uL MPV (7.40-12.00) fL Add Manual Diff Nucleated RBC % /100WBC Nucleated RBCs # K/uL INR ABG pH (7.35-7.45) ABG pCO2 (35-45) mmHG ABG pO2 (80-105) mmHG ABG HCO3 (22-26) mEq/L ABG Total CO2 (23-27) mmol/L ABG Base Excess (-2.0-3.0) Sodium 123 L (136-145) mmol/L Potassium 3.1 L (3.5-5.1) mmol/L Chloride 86 L (98-107) mmol/L Carbon Dioxide 26.9 (21.0-32.0) mmol/L BUN 14 (7.0-18.0) mg/dL Creatinine 0.6 (0.6-1.0) mg/dL Est Cr Clr Drug Dosing 79.85 mL/min Estimated GFR (MDRD) > 60.0 ml/min Glucose 156 H (74-106) mg/dL Lactic Acid (0.4-2.0) mmol/L Calcium 7.7 L (8.5-10.1) mg/dL Phosphorus 1.5 L (2.6-4.7) mg/dL Magnesium 1.7 L (1.8-2.4) mg/dL Troponin I (0.000-0.056) ng/mL B-Natriuretic Peptide (<100) PG/ML SARS-CoV-2 RNA (RA) (NEGATIVE) Blood Type A POSITIVE Antibody Screen NEGATIVE 06/02/21 06/02/21 06/02/21 Range/Units 21:49 21:49 21:54 WBC (4.0-11.0) K/uL RBC (4.30-5.90) M/uL Hgb (12.0-16.0) g/dL Hct (36.0-46.0) % MCV (80.0-98.0) fL MCH (27.0-32.0) pg MCHC (31.0-37.0) g/dL RDW Std Deviation (28.0-62.0) fl RDW Coeff of Khurram (11.0-15.0) % Plt Count (150-400) K/uL MPV (7.40-12.00) fL Add Manual Diff Nucleated RBC % /100WBC Nucleated RBCs # K/uL INR ABG pH (7.35-7.45) ABG pCO2 (35-45) mmHG ABG pO2 (80-105) mmHG ABG HCO3 (22-26) mEq/L ABG Total CO2 (23-27) mmol/L ABG Base Excess (-2.0-3.0) Sodium 124 L (136-145) mmol/L Potassium 3.5 (3.5-5.1) mmol/L Chloride 89 L (98-107) mmol/L Carbon Dioxide 27.4 (21.0-32.0) mmol/L BUN 19 H (7.0-18.0) mg/dL Creatinine 1.2 H (0.6-1.0) mg/dL Est Cr Clr Drug Dosing 39.92 mL/min Estimated GFR (MDRD) 46.0 ml/min Glucose 153 H (74-106) mg/dL Lactic Acid 3.8 H* (0.4-2.0) mmol/L Calcium 7.0 L (8.5-10.1) mg/dL Phosphorus (2.6-4.7) mg/dL Magnesium (1.8-2.4) mg/dL Troponin I < 0.050 (0.000-0.056) ng/mL B-Natriuretic Peptide (<100) PG/ML SARS-CoV-2 RNA (RA) (NEGATIVE) Blood Type Antibody Screen 06/02/21 06/02/21 06/03/21 Range/Units 22:56 23:00 04:20 WBC 0.67 L (4.0-11.0) K/uL RBC 2.82 L (4.30-5.90) M/uL Hgb 9.8 L 9.4 L (12.0-16.0) g/dL Hct 26.8 L 25.8 L (36.0-46.0) % MCV 91.5 (80.0-98.0) fL MCH 33.3 H (27.0-32.0) pg MCHC 36.4 (31.0-37.0) g/dL RDW Std Deviation 49.0 (28.0-62.0) fl RDW Coeff of Khurram 15 (11.0-15.0) % Plt Count 29 L (150-400) K/uL MPV 10.00 (7.40-12.00) fL Add Manual Diff YES Nucleated RBC % 5.1 /100WBC Nucleated RBCs # 1 K/uL INR ABG pH 7.48 H (7.35-7.45) ABG pCO2 34 L (35-45) mmHG ABG pO2 44 L (80-105) mmHG ABG HCO3 26 (22-26) mEq/L ABG Total CO2 23.3 (23-27) mmol/L ABG Base Excess 2.2 (-2.0-3.0) Sodium (136-145) mmol/L Potassium (3.5-5.1) mmol/L Chloride (98-107) mmol/L Carbon Dioxide (21.0-32.0) mmol/L BUN (7.0-18.0) mg/dL Creatinine (0.6-1.0) mg/dL Est Cr Clr Drug Dosing mL/min Estimated GFR (MDRD) ml/min Glucose (74-106) mg/dL Lactic Acid (0.4-2.0) mmol/L Calcium (8.5-10.1) mg/dL Phosphorus (2.6-4.7) mg/dL Magnesium (1.8-2.4) mg/dL Troponin I (0.000-0.056) ng/mL B-Natriuretic Peptide (<100) PG/ML SARS-CoV-2 RNA (RA) (NEGATIVE) Blood Type Antibody Screen 06/03/21 06/03/21 06/03/21 Range/Units 04:20 04:20 04:20 WBC (4.0-11.0) K/uL RBC (4.30-5.90) M/uL Hgb (12.0-16.0) g/dL Hct (36.0-46.0) % MCV (80.0-98.0) fL MCH (27.0-32.0) pg MCHC (31.0-37.0) g/dL RDW Std Deviation (28.0-62.0) fl RDW Coeff of Khurram (11.0-15.0) % Plt Count (150-400) K/uL MPV (7.40-12.00) fL Add Manual Diff Nucleated RBC % /100WBC Nucleated RBCs # K/uL INR ABG pH (7.35-7.45) ABG pCO2 (35-45) mmHG ABG pO2 (80-105) mmHG ABG HCO3 (22-26) mEq/L ABG Total CO2 (23-27) mmol/L ABG Base Excess (-2.0-3.0) Sodium 127 L (136-145) mmol/L Potassium 3.1 L (3.5-5.1) mmol/L Chloride 92 L (98-107) mmol/L Carbon Dioxide 24.3 (21.0-32.0) mmol/L BUN 21 H (7.0-18.0) mg/dL Creatinine 1.0 (0.6-1.0) mg/dL Est Cr Clr Drug Dosing 47.91 mL/min Estimated GFR (MDRD) 56.7 ml/min Glucose 152 H (74-106) mg/dL Lactic Acid 3.7 H* (0.4-2.0) mmol/L Calcium 6.4 L (8.5-10.1) mg/dL Phosphorus (2.6-4.7) mg/dL Magnesium 1.8 (1.8-2.4) mg/dL Troponin I (0.000-0.056) ng/mL B-Natriuretic Peptide 309 H (<100) PG/ML SARS-CoV-2 RNA (RA) (NEGATIVE) Blood Type Antibody Screen Result Diagrams: 06/03/21 04:20 06/03/21 04:20 Srinivas Results Last 24 hrs: Microbiology 06/02/21 05:10 Aerobic Blood Culture - Preliminary Blood - Venous NO GROWTH AFTER 1 DAY Anaerobic Blood Culture - Preliminary NO GROWTH AFTER 1 DAY Sepsis Event Note - Evaluation Sepsis Screening Result: Severe Sepsis Risk - Focused Exam Vital Signs: Vital Signs Temp Temp Pulse Pulse Resp BP BP 06/03/21 06:00 27 H 77/52 L 06/03/21 05:00 29 H 67/31 L 06/03/21 04:00 21 H 71/44 L 06/03/21 03:00 36.9 C 25 H 90/49 L 06/03/21 02:00 21 H 100/48 L 06/03/21 01:00 19 95/60 06/03/21 00:00 36.5 C 20 77/44 L 06/02/21 23:00 22 H 78/28 L 06/02/21 22:37 36.1 C 135 H 24 H 84/37 L 06/02/21 22:00 20 92/75 06/02/21 21:37 36.1 C 141 H 22 H 77/15 L 06/02/21 21:10 36.2 C 145 H 22 H 60/48 L 06/02/21 21:00 27 H 64/52 L 06/02/21 20:56 36.2 C 146 H 28 H 64/42 L 06/02/21 20:39 36.6 C 23 H 74/53 L 06/02/21 20:20 36.1 C 140 H 32 H 106/68 Pulse Ox 06/03/21 06:00 86 L 06/03/21 05:00 89 L 06/03/21 04:00 89 L 06/03/21 03:00 92 L 06/03/21 02:00 91 L 06/03/21 01:00 98 06/03/21 00:00 90 L 06/02/21 23:00 96 06/02/21 22:37 06/02/21 22:00 96 06/02/21 21:37 06/02/21 21:10 06/02/21 21:00 86 L 06/02/21 20:56 06/02/21 20:39 84 L 06/02/21 20:20 79 L - Problem List & Annotations (1) Palliative care patient SNOMED Code(s): 585562585, 216260877 Code(s): Z51.5 - ENCOUNTER FOR PALLIATIVE CARE Status: Acute Current Visit: Yes (2) Comfort measures only status SNOMED Code(s): 20042284097251 Code(s): Z51.5 - ENCOUNTER FOR PALLIATIVE CARE Status: Acute Current Visi t: Yes (3) Bilateral pulmonary embolism SNOMED Code(s): 24331656 Code(s): I26.99 - OTHER PULMONARY EMBOLISM WITHOUT ACUTE COR PULMONALE Status: Acute Current Visit: Yes (4) Disorder of right ventricle of heart SNOMED Code(s): 641244211 Code(s): I51.9 - HEART DISEASE, UNSPECIFIED Status: Acute Current Visit: Yes (5) Hypomagnesemia SNOMED Code(s): 046182869 Code(s): E83.42 - HYPOMAGNESEMIA Status: Acute Current Visit: Yes (6) Hyponatremia SNOMED Code(s): 14164002 Code(s): E87.1 - HYPO-OSMOLALITY AND HYPONATREMIA Status: Acute Current Visit: Yes (7) Metastasis SNOMED Code(s): 204989126 Code(s): C79.9 - SECONDARY MALIGNANT NEOPLASM OF UNSPECIFIED SITE Status: Acute Current Visit: Yes Qualifiers: Area of secondary neoplastic involvement: unspecified site Qualified Code(s): C79.9 - Secondary malignant neoplasm of unspecified site (8) Pancytopenia SNOMED Code(s): 732721690 Code(s): D61.818 - OTHER PANCYTOPENIA Status: Acute Current Visit: Yes (9) Squamous cell carcinoma of anus SNOMED Code(s): 726622443, 372717169 Code(s): C21.0 - MALIGNANT NEOPLASM OF ANUS, UNSPECIFIED Status: Acute Current Visit: No - Problem List Review Problem List Initiated/Reviewed/Updated: Yes - My Orders Last 24 Hours: My Active Orders 06/02/21 09:07 Telemetry Monitoring [Cardiac Monitoring] [RC] Q8H 06/02/21 14:10 OSMOLALITY - SERUM [REF] Routine PROCALCITONIN [REF] Routine 06/02/21 20:50 Transfer Patient (Change bed) [ADT] Routine 06/02/21 21:00 Pharmacy to Dose - Vancomycin 1 dose .XX ASDIRECTED Piperacillin/Tazobactam [Piperacil-Tazobact] 3.375 gm Sodium Chloride 0.9% [Normal Saline AdvBag] 50 ml IV Q6H Blood Culture x2 Reflex Set [OM.PC] Stat 06/02/21 21:15 Norepinephrine Bit/0.9 % NaCl [Norepinephr-0.9% NaCl 4 mg/250] 4 mg in 250 ml IV TITRATE 06/02/21 21:45 Enoxaparin [Lovenox] 80 mg SUBCUT Q12H 06/02/21 21:49 CULTURE BLOOD [BC] Stat 06/02/21 21:54 CULTURE BLOOD [BC] Stat 06/02/21 22:00 Levofloxacin/Dextrose 5%-Water [Levaquin in D5W 750 MG/150 ML] 750 mg Premix Bag 1 bag IV Q24H 06/02/21 23:12 UA RFX SRINIVAS AND CULT IF INDIC [URIN] Routine 06/03/21 07:02 Morphine 2 mg IVPUSH Q2H PRN 06/03/21 07:03 LORazepam [Ativan] 1 mg IVPUSH Q4H PRN 06/04/21 01:00 Vancomycin 1.25 gm Sodium Chloride 0.9% [Normal Saline] 250 ml IV Q24H 06/05/21 00:30 VANCOMYCIN TROUGH [CHEM] Timed - Plan Plan:: Patient is on two vasopressors, amiodarone drip and has high oxygen demand with [facility]. After speaking with patient and sister we will transition to comfort measures only. We will give morphine and Ativan prn and will start to scale back treatments that are not palliative.
[2021-06-03] MEDS: Phosphorus #1 250 MG Tab PO SCH (07:21)
[2021-06-03] MEDS: Morphine 2 MG/ML SYRINGE IVPUSH PRN ×2 (07:48→08:43)
--- NOTE | 2021-06-03 11:22 | PCM.DCSUM1 ---
Discharge Summary - Discharge Data Discharge Date: 06/03/21 Discharge Disposition: 20 Condition: - Referral to Home Health Primary Care Physician: PCP None - Discharge Diagnosis/Problem(s) (1) Palliative care patient SNOMED Code(s): 286322680, 542638761 ICD Code: Z51.5 - ENCOUNTER FOR PALLIATIVE CARE Status: Acute (2) Comfort measures only status SNOMED Code(s): 72111511213861 ICD Code: Z51.5 - ENCOUNTER FOR PALLIATIVE CARE Status: Acute (3) Bilateral pulmonary embolism SNOMED Code(s): 44453178 ICD Code: I26.99 - OTHER PULMONARY EMBOLISM WITHOUT ACUTE COR PULMONALE Status: Acute (4) Disorder of right ventricle of heart SNOMED Code(s): 115278526 ICD Code: I51.9 - HEART DISEASE, UNSPECIFIED Status: Acute (5) Hypomagnesemia SNOMED Code(s): 239580875 ICD Code: E83.42 - HYPOMAGNESEMIA Status: Acute (6) Hyponatremia SNOMED Code(s): 31769398 ICD Code: E87.1 - HYPO-OSMOLALITY AND HYPONATREMIA Status: Acute (7) Metastasis SNOMED Code(s): 333703281 ICD Code: C79.9 - SECONDARY MALIGNANT NEOPLASM OF UNSPECIFIED SITE Status: Acute Qualifiers: Area of secondary neoplastic involvement: unspecified site Qualified Code(s): C79.9 - Secondary malignant neoplasm of unspecified site (8) Pancytopenia SNOMED Code(s): 356951891 ICD Code: D61.818 - OTHER PANCYTOPENIA Status: Acute (9) Squamous cell carcinoma of anus SNOMED Code(s): 495540724, 377588959 ICD Code: C21.0 - MALIGNANT NEOPLASM OF ANUS, UNSPECIFIED Status: Acute (10) Embolism SNOMED Code(s): 706457204 ICD Code: I74.9 - EMBOLISM AND THROMBOSIS OF UNSPECIFIED ARTERY Status: Acute (11) Metastasis to brain Status: Acute (12) Thrombocytopenia SNOMED Code(s): 468713573 ICD Code: D69.6 - THROMBOCYTOPENIA, UNSPECIFIED Status: Acute - Patient Summary/Data Hospital Course: 61-year-old female with 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 Work up was significant for pancytopenia, sodium of 122, negative troponin an negative COVID. CT PE study reported bilateral small lobar and segmental branch filling defect compatible with pulmonary emboli. Possible enlarged right ventricle. Multiple nodules and mediastinotomy adenopathy. Dense alveolar opacification medial right lower lobe, potential pulmonary infarct. She was admitted for pulmonary embolis, hyponatremia, and failure to thrive. Eliquis was a home medication but she was switched to Lovenox. She was given IV fluids due to concerns of dehydration causing her hyponatreia. Her pancytopenia was thought to be due to recent chemotherapy. Overnight her hypoxia worsened and she became hypotensive. She was given additional fluid boluses, broad spectrum antibiotics, and Diflucan. She was placed on heated high flow nasal canula. She was started on levophed drip and then phenylephrine to maintain blood pressures. Thrombolytics was contraindicated due to history of brain metastasis. She was also started on amiodarone drip due to SVT. This morning patient requested to be made comfort measures only. Comfort measures were started. Patient with sister present. - Discharge Plan Home Medications: Home Meds Furosemide 20 mg PO DAILY PRN 01/29/19 [History] Gabapentin [Neurontin] 600 mg PO BID 01/29/19 [History] Albuterol [Ventolin HFA] 2 puff INH QID PRN 02/23/19 [History] Apixaban [Eliquis] 2.5 mg PO BID 06/02/21 [History] Hydrocodone/Acetaminophen [HYDROcodone-Acetaminophen 5-325 MG] 1 each PO TID PRN 06/02/21 [History] Pantoprazole [ProTONIX] 40 mg PO BID 06/02/21 [History] ondansetron HCL [Ondansetron HCl] 4 mg PO TID PRN 06/02/21 [History] Forms: ED Department Discharge Referrals: PCP,None [Primary Care Provider] - - Discharge Summary/Plan Comment DC Time >30 min.: No Total # of Minutes for Discharge Time: 25 - Patient Data Vitals - Most Recent: Last Vital Signs Temp 36.6 C 06/03/21 08:00 Pulse 135 H 06/02/21 22:37 Resp 7 L 06/03/21 08:50 BP 70/51 L 06/03/21 08:50 Pulse Ox 71 L 06/03/21 08:50 Weight - Most Recent: 77.111 kg I&O - Last 24 hours: Intake & Output 06/02/21 06/03/21 06/03/21 22:59 06:59 14:59 Intake Total 1561 2261 Output Total 150 Balance 1561 2111 Lab Results - Last 24 hrs: Laboratory Results - last 24 hr 06/02/21 06/02/21 06/02/21 Range/Units 13:19 14:10 14:10 WBC (4.0-11.0) K/uL RBC (4.30-5.90) M/uL Hgb (12.0-16.0) g/dL Hct (36.0-46.0) % MCV (80.0-98.0) fL MCH (27.0-32.0) pg MCHC (31.0-37.0) g/dL RDW Std Deviation (28.0-62.0) fl RDW Coeff of Khurram (11.0-15.0) % Plt Count (150-400) K/uL MPV (7.40-12.00) fL Add Manual Diff Neutrophils % (Manual) (48.0-80.0) % Lymphocytes % (Manual) (16.0-40.0) % Monocytes % (Manual) (0.0-15.0) % Nucleated RBC % /100WBC Absolute Seg Neuts (1.4-5.7) Lymphocytes # (Manual) (0.6-2.4) Monocytes # (Manual) (0.0-0.8) Nucleated RBCs # K/uL ABG pH (7.35-7.45) ABG pCO2 (35-45) mmHG ABG pO2 (80-105) mmHG ABG HCO3 (22-26) mEq/L ABG Total CO2 (23-27) mmol/L ABG Base Excess (-2.0-3.0) Sodium 123 L (136-145) mmol/L Potassium 3.1 L (3.5-5.1) mmol/L Chloride 86 L (98-107) mmol/L Carbon Dioxide 26.9 (21.0-32.0) mmol/L BUN 14 (7.0-18.0) mg/dL Creatinine 0.6 (0.6-1.0) mg/dL Est Cr Clr Drug Dosing 79.85 mL/min Estimated GFR (MDRD) > 60.0 ml/min Glucose 156 H (74-106) mg/dL Lactic Acid (0.4-2.0) mmol/L Calcium 7.7 L (8.5-10.1) mg/dL Phosphorus 1.5 L (2.6-4.7) mg/dL Magnesium 1.7 L (1.8-2.4) mg/dL Troponin I (0.000-0.056) ng/mL B-Natriuretic Peptide (<100) PG/ML Blood Type A POSITIVE Antibody Screen NEGATIVE 06/02/21 06/02/21 06/02/21 Range/Units 21:49 21:49 21:54 WBC (4.0-11.0) K/uL RBC (4.30-5.90) M/uL Hgb (12.0-16.0) g/dL Hct (36.0-46.0) % MCV (80.0-98.0) fL MCH (27.0-32.0) pg MCHC (31.0-37.0) g/dL RDW Std Deviation (28.0-62.0) fl RDW Coeff of Khurram (11.0-15.0) % Plt Count (150-400) K/uL MPV (7.40-12.00) fL Add Manual Diff Neutrophils % (Manual) (48.0-80.0) % Lymphocytes % (Manual) (16.0-40.0) % Monocytes % (Manual) (0.0-15.0) % Nucleated RBC % /100WBC Absolute Seg Neuts (1.4-5.7) Lymphocytes # (Manual) (0.6-2.4) Monocytes # (Manual) (0.0-0.8) Nucleated RBCs # K/uL ABG pH (7.35-7.45) ABG pCO2 (35-45) mmHG ABG pO2 (80-105) mmHG ABG HCO3 (22-26) mEq/L ABG Total CO2 (23-27) mmol/L ABG Base Excess (-2.0-3.0) Sodium 124 L (136-145) mmol/L Potassium 3.5 (3.5-5.1) mmol/L Chloride 89 L (98-107) mmol/L Carbon Dioxide 27.4 (21.0-32.0) mmol/L BUN 19 H (7.0-18.0) mg/dL Creatinine 1.2 H (0.6-1.0) mg/dL Est Cr Clr Drug Dosing 39.92 mL/min Estimated GFR (MDRD) 46.0 ml/min Glucose 153 H (74-106) mg/dL Lactic Acid 3.8 H* (0.4-2.0) mmol/L Calcium 7.0 L (8.5-10.1) mg/dL Phosphorus (2.6-4.7) mg/dL Magnesium (1.8-2.4) mg/dL Troponin I < 0.050 (0.000-0.056) ng/mL B-Natriuretic Peptide (<100) PG/ML Blood Type Antibody Screen 06/02/21 06/02/21 06/03/21 Range/Units 22:56 23:00 04:20 WBC 0.67 L (4.0-11.0) K/uL RBC 2.82 L (4.30-5.90) M/uL Hgb 9.8 L 9.4 L (12.0-16.0) g/dL Hct 26.8 L 25.8 L (36.0-46.0) % MCV 91.5 (80.0-98.0) fL MCH 33.3 H (27.0-32.0) pg MCHC 36.4 (31.0-37.0) g/dL RDW Std Deviation 49.0 (28.0-62.0) fl RDW Coeff of Khurram 15 (11.0-15.0) % Plt Count 29 L (150-400) K/uL MPV 10.00 (7.40-12.00) fL Add Manual Diff YES Neutrophils % (Manual) 19 L (48.0-80.0) % Lymphocytes % (Manual) 11 L (16.0-40.0) % Monocytes % (Manual) 70 H (0.0-15.0) % Nucleated RBC % 5.1 /100WBC Absolute Seg Neuts 0.1 L (1.4-5.7) Lymphocytes # (Manual) 0.1 L (0.6-2.4) Monocytes # (Manual) 0.5 (0.0-0.8) Nucleated RBCs # 1 K/uL ABG pH 7.48 H (7.35-7.45) ABG pCO2 34 L (35-45) mmHG ABG pO2 44 L (80-105) mmHG ABG HCO3 26 (22-26) mEq/L ABG Total CO2 23.3 (23-27) mmol/L ABG Base Excess 2.2 (-2.0-3.0) Sodium (136-145) mmol/L Potassium (3.5-5.1) mmol/L Chloride (98-107) mmol/L Carbon Dioxide (21.0-32.0) mmol/L BUN (7.0-18.0) mg/dL Creatinine (0.6-1.0) mg/dL Est Cr Clr Drug Dosing mL/min Estimated GFR (MDRD) ml/min Glucose (74-106) mg/dL Lactic Acid (0.4-2.0) mmol/L Calcium (8.5-10.1) mg/dL Phosphorus (2.6-4.7) mg/dL Magnesium (1.8-2.4) mg/dL Troponin I (0.000-0.056) ng/mL B-Natriuretic Peptide (<100) PG/ML Blood Type Antibody Screen 06/03/21 06/03/21 06/03/21 Range/Units 04:20 04:20 04:20 WBC (4.0-11.0) K/uL RBC (4.30-5.90) M/uL Hgb (12.0-16.0) g/dL Hct (36.0-46.0) % MCV (80.0-98.0) fL MCH (27.0-32.0) pg MCHC (31.0-37.0) g/dL RDW Std Deviation (28.0-62.0) fl RDW Coeff of Khurram (11.0-15.0) % Plt Count (150-400) K/uL MPV (7.40-12.00) fL Add Manual Diff Neutrophils % (Manual) (48.0-80.0) % Lymphocytes % (Manual) (16.0-40.0) % Monocytes % (Manual) (0.0-15.0) % Nucleated RBC % /100WBC Absolute Seg Neuts (1.4-5.7) Lymphocytes # (Manual) (0.6-2.4) Monocytes # (Manual) (0.0-0.8) Nucleated RBCs # K/uL ABG pH (7.35-7.45) ABG pCO2 (35-45) mmHG ABG pO2 (80-105) mmHG ABG HCO3 (22-26) mEq/L ABG Total CO2 (23-27) mmol/L ABG Base Excess (-2.0-3.0) Sodium 127 L (136-145) mmol/L Potassium 3.1 L (3.5-5.1) mmol/L Chloride 92 L (98-107) mmol/L Carbon Dioxide 24.3 (21.0-32.0) mmol/L BUN 21 H (7.0-18.0) mg/dL Creatinine 1.0 (0.6-1.0) mg/dL Est Cr Clr Drug Dosing 47.91 mL/min Estimated GFR (MDRD) 56.7 ml/min Glucose 152 H (74-106) mg/dL Lactic Acid 3.7 H* (0.4-2.0) mmol/L Calcium 6.4 L (8.5-10.1) mg/dL Phosphorus (2.6-4.7) mg/dL Magnesium 1.8 (1.8-2.4) mg/dL Troponin I (0.000-0.056) ng/mL B-Natriuretic Peptide 309 H (<100) PG/ML Blood Type Antibody Screen TORIN Results - Last 24 hrs: Microbiology 06/02/21 07:15 Aerobic Blood Culture - Preliminary Blood - Venous - Lab Draw NO GROWTH AFTER 1 DAY Anaerobic Blood Culture - Preliminary NO GROWTH AFTER 1 DAY 06/02/21 05:10 Aerobic Blood Culture - Preliminary Blood - Venous NO GROWTH AFTER 1 DAY Anaerobic Blood Culture - Preliminary NO GROWTH AFTER 1 DAY Med Orders - Current: Current Medications Discontinued Medications Hydrocodone Bitart/Acetaminophen (Acetaminophen/Hydrocodone 325-5 Mg Tab) 1 tab PO TID PRN PRN Reason: Pain (severe 7-10) Last Admin: 06/02/21 19:49 Dose: 1 tab Documented by: Albuterol (Albuterol 8 Gm Inhaler) 0 gm INH Q6HRRT PRN PRN Reason: Shortness of Breath Al Hydroxide/Mg Hydroxide 15 (ml/ Lidocaine HCl 5 ml) 0 ml PO ONETIME ONE Stop: 06/02/21 07:28 Last Admin: 06/02/21 07:40 Dose: 20 each Documented by: Enoxaparin Sodium (Enoxaparin 100 Mg/1 Ml Syringe) 75 mg 1 mg/kg (75 mg) SUBCUT STAT STA Stop: 06/02/21 08:40 Last Admin: 06/02/21 08:57 Dose: 75 mg Documented by: Enoxaparin Sodium (Enoxaparin 40 Mg/0.4 Ml Syringe) 80 mg SUBCUT Q12H [facility] Last Admin: 06/02/21 22:05 Dose: 80 mg Documented by: Filgrastim (Filgrastim 480 Mcg/0.8 Ml Syringe) 480 mcg SUBCUT DAILY [facility] Stop: 06/04/21 09:01 Last Admin: 06/02/21 13:40 Dose: 480 mcg Documented by: Fluconazole (Fluconazole 100 Mg Tab) 200 mg PO ONETIME ONE Stop: 06/02/21 23:14 Last Admin: 06/02/21 23:37 Dose: 200 mg Documented by: Gabapentin (Gabapentin 300 Mg Cap) 600 mg PO BID [facility] Last Admin: 06/02/21 20:01 Dose: 600 mg Documented by: Lactated Ringer's (Ringers, Lactated) 1,000 mls @ 999 mls/hr IV ASDIRECTED [facility] Last Admin: 06/02/21 04:59 Dose: 999 mls/hr Documented by: Sodium Chloride (Normal Saline) 1,000 mls @ 999 mls/hr IV ASDIRECTED [facility] Last Admin: 06/02/21 06:52 Dose: 999 mls/hr Documented by: Magnesium Sulfate 2 gm/ Premix 50 mls @ 25 mls/hr IV ONETIME ONE Stop: 06/02/21 10:39 Last Admin: 06/02/21 08:57 Dose: 25 mls/hr Documented by: Sodium Chloride (Normal Saline) 1,000 mls @ 125 mls/hr IV ASDIRECTED [facility] Last Infusion: 06/03/21 03:40 Dose: 125 mls/hr Documented by: Piperacillin Sod/Tazobactam (Sod 3.375 gm/ Sodium Chloride) 50 mls @ 100 mls/hr IV Q6H [facility] Last Admin: 06/03/21 03:05 Dose: 100 mls/hr Documented by: Levofloxacin/Dextrose 750 mg/ (Premix) 150 mls @ 100 mls/hr IV Q24H [facility] Last Admin: 06/02/21 23:13 Dose: 100 mls/hr Documented by: Norepinephrine Bitartrate (Norepinephr-0.9% Nacl 4 Mg/250) 4 mg in 250 mls @ 7.5 mls/hr IV TITRATE [facility]; Protocol Last Titration: 06/03/21 08:50 Dose: 0 mcg/min, 0 mls/hr Documented by: Norepinephrine Bitartrate (Norepinephr-0.9% Nacl 4 Mg/250) Confirm Administered Dose 4 mg in 250 mls @ as directed IV .STK-MED ONE Stop: 06/02/21 21:03 Last Admin: 06/02/21 22:15 Dose: Not Given Documented by: Vancomycin HCl 2 gm/ Premix 400 mls @ 200 mls/hr IV ONETIME ONE Stop: 06/03/21 00:59 Last Admin: 06/03/21 00:50 Dose: 200 mls/hr Documented by: Sodium Chloride (Normal Saline) 500 mls @ 999 mls/hr IV BOLUS [facility] Last Admin: 06/02/21 21:39 Dose: 999 mls/hr Documented by: Pantoprazole Sodium 40 mg/ (Sodium Chloride) 10 mls @ 300 mls/hr IV DAILY [facility] Last Admin: 06/02/21 23:28 Dose: 300 mls/hr Documented by: Sodium Chloride (Normal Saline) 500 mls @ 999 mls/hr IV .Bolus ONE Stop: 06/03/21 00:03 Last Admin: 06/03/21 00:13 Dose: 999 mls/hr Documented by: Vancomycin HCl 1.25 gm/ Sodium (Chloride) 250 mls @ 166.667 mls/hr IV Q24H [facility] Phenylephrine HCl 10 mg/ (Sodium Chloride) 100 mls @ 24 mls/hr IV TITRATE [facility]; Protocol Last Titration: 06/03/21 08:40 Dose: 0 mcg/min, 0 mls/hr Documented by: Amiodarone HCl 150 mg/ (Dextrose/Water) 103 mls @ 600 mls/hr IV .BOLUS ONE Stop: 06/03/21 05:08 Last Admin: 06/03/21 05:29 Dose: Not Given Documented by: Amiodarone HCl/Dextrose (Nexterone In Dextrose 360 Mg/200 Ml) 360 mg in 200 mls @ 33.333 mls/hr IV ASDIRECTED [facility]; Protocol Last Infusion: 06/03/21 08:50 Dose: 0 mg/min, 0 mls/hr Documented by: Amiodarone HCl/Dextrose 150 mg (/ Premix) 100 mls @ 582.524 mls/hr IV .BOLUS ONE Stop: 06/03/21 05:08 Last Admin: 06/03/21 05:11 Dose: 582.524 mls/hr Documented by: Acetaminophen 1,000 mg/ Premix 100 mls @ 400 mls/hr IV NOW ONE Stop: 06/03/21 05:38 Last Admin: 06/03/21 07:51 Dose: Not Given Documented by: Iopamidol (Iopamidol 755 Mg/Ml 500 Ml Multipack Bottle) 100 ml IVPUSH ONETIME STA Stop: 06/02/21 07:00 Last Admin: 06/02/21 06:59 Dose: 100 ml Documented by: Lidocaine (Lidocaine 5% 700 Mg Patch) 700 mg TRDERM ONETIME ONE Stop: 06/02/21 23:52 Last Admin: 06/03/21 00:13 Dose: 700 mg Documented by: Lorazepam (Lorazepam 2 Mg/Ml Sdv) 1 mg IVPUSH Q4H PRN PRN Reason: Agitation Last Admin: 06/03/21 07:49 Dose: 1 mg Documented by: Magnesium Oxide (Magnesium Oxide 400 Mg Tab) 400 mg PO BID [facility] Last Admin: 06/02/21 20:01 Dose: 400 mg Documented by: Morphine Sulfate (Morphine 4 Mg/Ml Syringe) 4 mg IVPUSH ONETIME ONE Stop: 06/02/21 04:48 Last Admin: 06/02/21 05:04 Dose: Not Given Documented by: Morphine Sulfate (Morphine 2 Mg/Ml Syringe) Confirm Administered Dose 4 mg .ROUTE .STK-MED ONE Stop: 06/02/21 04:58 Last Admin: 06/02/21 05:01 Dose: Not Given Documented by: Morphine Sulfate (Morphine 2 Mg/Ml Syringe) 4 mg IVPUSH ONETIME ONE Stop: 06/02/21 05:01 Last Admin: 06/02/21 05:04 Dose: 4 mg Documented by: Morphine Sulfate (Morphine 2 Mg/Ml Syringe) 2 mg IVPUSH Q2H PRN PRN Reason: Pain Morphine Sulfate (Morphine 2 Mg/Ml Syringe) 2 mg IVPUSH Q1H PRN PRN Reason: Pain Last Admin: 06/03/21 08:43 Dose: 2 mg Documented by: Ondansetron HCl (Ondansetron 4 Mg/2 Ml Sdv) 4 mg IVPUSH ONETIME ONE Stop: 06/02/21 04:48 Last Admin: 06/02/21 05:00 Dose: 4 mg Documented by: Ondansetron HCl (Ondansetron 4 Mg/2 Ml Sdv) 4 mg IVPUSH Q4H PRN PRN Reason: Nausea Last Admin: 06/03/21 00:49 Dose: 4 mg Documented by: Pantoprazole Sodium (Pantoprazole 40 Mg Vial) Confirm Administered Dose 40 mg .ROUTE .STK-MED ONE Stop: 06/02/21 23:25 Last Admin: 06/02/21 23:30 Dose: Not Given Documented by: Potassium Chloride (Potassium Chloride 20 Meq Tab.Er) 40 meq PO ONETIME ONE Stop: 06/02/21 15:16 Last Admin: 06/02/21 15:34 Dose: 40 meq Documented by: Romiplostim (Romiplostim 250 Mcg Vial) 80 mcg SUBCUT ONETIME ONE Stop: 06/02/21 13:31 Last Admin: 06/02/21 13:40 Dose: 80 mcg Documented by: Sodium Chloride (Sodium Chloride 0.9% 10 Ml Syringe) 10 ml FLUSH ASDIRECTED PRN PRN Reason: Keep Vein Open Last Admin: 06/02/21 06:53 Dose: 10 ml Documented by: Sodium Chloride (Sodium Chloride 0.9% 2.5 Ml Syringe) 2.5 ml FLUSH ASDIRECTED PRN PRN Reason: Keep Vein Open Last Admin: 06/02/21 06:53 Dose: 2.5 ml Documented by: Sodium Phosphate (Phosphorus #1 250 Mg Tab) 250 mg PO QID [facility] Last Admin: 06/03/21 07:21 Dose: Not Given Documented by: Vancomycin HCl (Pharmacy To Dose - Vancomycin) 1 dose .XX ASDIRECTED [facility]
== END 2021-06-03 08:53 | disposition expired | DRG 175 ==
LOC: MW.ED 04:41 → MW.MS 09:15 → MW.ICU 20:44
PROVIDERS: ADMIT Internal Medicine; ATTEND Internal Medicine
PROC: 5A0935A Assistance with Respiratory Ventilation, Less than 24 Consecutive Hours, High Flow/Velocity Cannula (ICD-10-PCS; principal; 2021-06-02)
PROC: 30233R1 Transfusion of Nonautologous Platelets into Peripheral Vein, Percutaneous Approach (ICD-10-PCS; 2021-06-02)
PROC: 3E033XZ Introduction of Vasopressor into Peripheral Vein, Percutaneous Approach (ICD-10-PCS; 2021-06-02)
DX: I26.99 Other pulmonary embolism without acute cor pulmonale (principal); D61.810 Antineoplastic chemotherapy induced pancytopenia; E87.1 Hypo-osmolality and hyponatremia; R07.9 Chest pain, unspecified; R06.00 Dyspnea, unspecified; I50.810 Right heart failure, unspecified; C21.0 Malignant neoplasm of anus, unspecified; I74.9 Embolism and thrombosis of unspecified artery; C79.31 Secondary malignant neoplasm of brain; I47.1 Supraventricular tachycardia; B37.81 Candidal esophagitis; M54.9 Dorsalgia, unspecified; C78.00 Secondary malignant neoplasm of unspecified lung; F32.9 Major depressive disorder, single episode, unspecified; Z51.5 Encounter for palliative care; C80.1 Malignant (primary) neoplasm, unspecified; I51.9 Heart disease, unspecified; Z91.048 Other nonmedicinal substance allergy status; E83.42 Hypomagnesemia; D69.6 Thrombocytopenia, unspecified; E86.0 Dehydration; Z20.822 Contact with and (suspected) exposure to COVID-19; T45.1X5A Adverse effect of antineoplastic and immunosuppressive drugs, initial encounter; I95.9 Hypotension, unspecified; J44.9 Chronic obstructive pulmonary disease, unspecified; R62.7 Adult failure to thrive; F17.210 Nicotine dependence, cigarettes, uncomplicated; K21.9 Gastro-esophageal reflux disease without esophagitis; M19.90 Unspecified osteoarthritis, unspecified site; M54.50 Low back pain, unspecified; G89.29 Other chronic pain; F43.10 Post-traumatic stress disorder, unspecified; F41.9 Anxiety disorder, unspecified; F32.A Depression, unspecified; Z86.19 Personal history of other infectious and parasitic diseases; Z91.51 Personal history of suicidal behavior; Z98.51 Tubal ligation status; Z79.01 Long term (current) use of anticoagulants; Z79.899 Other long term (current) drug therapy; Z91.09 Other allergy status, other than to drugs and biological substances; Z87.81 Personal history of (healed) traumatic fracture; Z68.31 Body mass index [BMI] 31.0-31.9, adult
CPT/HCPCS: 36415; 71045; 71275; 80053; 83605; 83690; 83735; 84484; 85025; 85610; 87040 ×2; 93005; 96374; 96375; 99285; A9270 ×2; J1650; J2270; J2405; J3475; J7030; J7120; Q9967; U0002; 36410; 36430; 36600; 80048; 82803; 83880; 83930; 84100; 84145; 85014; 85018; 86850; 86900; 86901; 93970; 93970-26; C9113; J0282; J1442; J1956; J2060; J2370; J2543; J2796; J3370; P9034